=== PATIENT | male | born 1970 | race Caucasian/White ===

== ENCOUNTER 2024-03-04 07:35 | Outpatient (CLI) | payer OTHER, SELFPAY ==
--- OUTSIDE RECORDS SUMMARY | 2024-03-06 11:26 | XMS_ITS | Clinical Summary ---
Author Organization [facility] Address [place], [place] [address] Care Team Providers Care Jack Machine Operator Name Role Phone Pcp, No Primary Care Provider Unavailabl e Allergies No known active allergies Medications No known medications Encounters Date Type Department Care Team Description 12/09/2023 2:07 PM CDT - 12/09/2023 4:50 PM CDT Emergency [address] [address] Joon Dean MD Closed fracture of multiple ribs of left side, initial encounter (Primary Dx); Blunt trauma to chest, initial encounter; Hemothorax on left; Contusion of left lung, initial encounter Discharge Disposition: [facility] 12/09/2023 Travel from Last 3 Months Social History Tobacco Use Types Packs/Day Years Used Date Smoking Tobacco: Every Day Smokeless Tobacco: Never Sex and Gender Information Value Date Recorded Sex Assigned at Not on file Gender Identity Not on file Sexual Orientation Not on file Obstetrics History Last Filed Vital Signs Vital Sign Reading Time Taken Comments Blood Pressure 147/106 12/09/2023 4:03 PM CDT Pulse 101 12/09/2023 4:03 PM CDT Temperature 37 ??C (98.6 ??F) 12/09/2023 3:07 PM CDT Respiratory Rate 18 12/09/2023 3:00 PM CDT Oxygen Saturation 96% 12/09/2023 4:03 PM CDT Inhaled Oxygen Concentration - - Weight 98 kg (216 lb) 12/09/2023 3:11 PM CDT Height 167.6 cm (5' 6) 12/09/2023 3:11 PM CDT Body Mass Index 34.86 12/09/2023 3:11 PM CDT Plan of Treatment Health Maintenance Due Date Last Done Comments Tdap 11/29/1982 Depression screening for age 12+ 1983 HIV for age 15-65 11/29/1986 BMI (ht and wt on same day) for age 18+ 11/29/1989 Hepatitis C screening for ag e 18-79 11/29/1989 Tetanus booster 1991 Colonoscopy through age 75 11/29/2016 Lipids for age 45-75 11/29/2016 Zoster (shingles) series for age 50+ (1 of 2) 11/29/2021 COVID-19 vaccine series (2022- season) 2024 06/23/2021, 10/10/2020, 09/12/2020 Influenza for age 50-64 02/17/2024 Pneumococcal series for age 6-64 Aged Out No longer eligible b ased on patient's age to complete this topic Procedures Procedure Name Priority Date/Time Associated Diagnosis Comments CTA CHEST ABDOMEN PELVIS STAT 12/09/2023 2:[address] SPINE CERVICAL WO STAT 12/09/2023 2:[address] HEAD BRAIN WO STAT 12/09/2023 2:54 PM CDT EKG 12 LEAD STAT 12/09/2023 2:53 PM CDT XR CHEST 1 VIEW PORTABLE STAT 12/09/2023 2:51 PM CDT TYPE & SCREEN STAT 12/09/2023 2:19 PM CDT CBC WITH AUTO DIFFERENTIAL STAT 12/09/2023 2:19 PM CDT BASIC METABOLIC PANEL STAT 12/09/2023 2:19 PM CDT CBC WITH AUTO DIFFERENTIAL STAT 12/09/2023 2:19 PM CDT from Last 3 Months Results * CTA CHEST ABDOMEN PELVIS (12/09/2023 2:55 PM CDT) Anatomical Region Laterality Modality Abdomen, Pelvis, AORTA, LIVER, SPLEEN, CHEST Computed Tomography 12/09/2023 4:28 PM CDT Impressions 12/09/2023 4:28 PM CDT Acute mildly displaced left 5th, 6th, 7th, 8th rib fractures. These are fractured in 2 or more places which increases the risk of flail chest. Associated trace apical pneumothorax with left lower lobe pulmonary contusion/small pleural effusion. No acute intra-abdominal/pelvic abnormality. Please note that all CT scans at this facility use dose modulation, iterative reconstruction, and/or weight-based dosing when appropriate to reduce radiation dose to as low as reasonably achievable. Dictated by Levi Conde MD @ 12/09/2023 4:28:35 PM (Electronically Signed) Narrative 12/09/2023 4:28 PM CDT For Patients: ??As a result of the Cures Act, medical imaging exams and procedure reports are released immediately into your electronic medical record. ??You may view this report before your referring provider. ??If you have questions, please contact your health care provider. INDICATION: Trauma, left-sided rib pain TECHNIQUE: CT chest, abdomen, pelvis without contrast and CT chest, abdomen and pelvis acquired with 100 milliliters Omnipaque 350 IV contrast, dissection protocol. COMPARISON: None. FINDINGS: CHEST: Cardiovascular structures: The unenhanced images demonstrate no evidence of aortic intramural hematoma. ??The entire aorta is normal in caliber and there is no sign of aortic dissection. Heart size is normal. ?? Mediastinum and rg: No mass or adenopathy. ?? Lungs and pleura: Trace left apical pneumothorax. Left basilar consolidation with small pleural effusion. Chest wall and axilla: Associated left chest wall subcutaneous emphysema. No mass or adenopathy. ?? Bones: Acute mildly displaced left 5th, 6th, 7th, 8th rib fractures which are each fractured in multiple places. ABDOMEN AND PELVIS: Liver: Hepatic steatosis.. Gallbladder and bile ducts: Unremarkable. ?? Pancreas: Unremarkable. ?? Spleen: Unremarkable. ?? Adrenal glands: Unremarkable. ?? Kidneys: Unremarkable. ?? GI tract: Unremarkable. Vascular structures: Unremarkable. ?? Lymph nodes: Unremarkable. ?? Miscellaneous: Unremarkable. ??No free air or significant free fluid. ?? Pelvic Organs: Unremarkable. ?? Bones: Unremarkable for age. ?? Procedure Note Levi Conde MD - 12/09/2023 For Patients: As a result of the Century Cures Act, medical imagingexams and procedure reports are released immediately into your electronicmedical record. You may view this report before your referring provider.If you have questions, please contact your health care provider. INDICATION: Trauma, left-sided rib pain TECHNIQUE: CT chest, abdomen, pelvis without contrast and CT chest, abdomen andpelvis acquired with 100 milliliters Omnipaque 350 IV contrast, dissectionprotocol. COMPARISON: None. FINDINGS: CHEST: Cardiovascular structures: The unenhanced images demonstrate no evidenceof aortic intramural hematoma. The entire aorta is normal in caliber andthere is no sign of aortic dissection. Heart size is normal. Mediastinum and rg: No mass or adenopathy. Lungs and pleura: Trace left apical pneumothorax. Left basilarconsolidation with small pleural effusion. Chest wall and axilla: Associated left chest wall subcutaneous emphysema.No mass or adenopathy. Bones: Acute mildly displaced left 5th, 6th, 7th, 8th rib fractures whichare each fractured in multiple places. ABDOMEN AND PELVIS: Liver: Hepatic steatosis.. Gallbladder and bile ducts: Unremarkable. Pancreas: Unremarkable. Spleen: Unremarkable. Adrenal glands: Unremarkable. Kidneys: Unremarkable. GI tract: Unremarkable. Vascular structures: Unremarkable. Lymph nodes: Unremarkable. Miscellaneous: Unremarkable. No free air or significant free fluid. Pelvic Organs: Unremarkable. Bones: Unremarkable for age. IMPRESSION: Acute mildly displaced left 5th, 6th, 7th, 8th rib fractures. These arefractured in 2 or more places which increases the risk of flail chest. Associated trace apical pneumothorax with left lower lobe pulmonarycontusion/small pleural effusion. No acute intra-abdominal/pelvic abnormality. Please note that all CT scans at this facility use dose modulation,iterative reconstruction, and/or weight-based dosing when appropriate toreduce radiation dose to as low as reasonably achievable. Dictated by Levi Conde MD @ 12/09/2023 4:28:35 PM (Electronically Signed) Joon Dean MD CT * CT SPINE CERVICAL WO (12/09/2023 2:55 PM CDT) Anatomical Region Laterality Modality CERVICAL SPINE, NECK, Spine Comp uted Tomography 12/09/2023 3:19 PM CDT Impressions 12/09/2023 3:19 PM CDT 1. No acute fracture or traumatic subluxation. 2. Mild multilevel cervical spondylosis. Please note that all CT scans at this facility use dose modulation, iterative reconstruction, and/or weight-based dosing when appropriate to reduce radiation dose to as low as reasonably achievable. Dictated by Mahad Santana MD @ 12/09/2023 3:19:24 PM (Electronically Signed) Narrative 12/09/2023 3:19 PM CDT For Patients: ??As a result of the Cures Act, medical imaging exams and procedure reports are released immediately into your electronic medical record. ??You may view this report before your referring provider. ??If you have questions, please contact your health care provider. INDICATION: Trauma. Technique Noncontrast CT images of the cervical spine. COMPARISON: None. FINDINGS The cervical lordosis is maintained. Mild leftward cervical curvature. Vertebral body heights are preserved. No acute fracture, spondylolisthesis, or traumatic subluxation. Shallow multilevel posterior bulging and uncinate spurring. No spinal canal or neural foraminal stenosis. No concerning opacities in the lung apices. Procedure Note Mahad Santana MD - 12/09/2023 For Patients: As a result of the Cures Act, medical imagingexams and procedure reports are released immediately into your electronicmedical record. You may view this report before your referring provider.If you have questions, please contact your health care provider. INDICATION: Trauma. Technique Noncontrast CT images of the cervical spine. COMPARISON: None. FINDINGS The cervical lordosis is maintained. Mild leftward cervical curvature.Vertebral body heights are preserved. No acute fracture,spondylolisthesis, or traumatic subluxation. Shallow multilevel posterior bulging and uncinate spurring. No spinalcanal or neural foraminal stenosis. No concerning opacities in the lung apices. IMPRESSION: 1. No acute fracture or traumatic subluxation. 2. Mild multilevel cervical spondylosis. Please note that all CT scans at this facility use dose modulation,iterative reconstruction, and/or weight-based dosing when appropriate toreduce radiation dose to as low as reasonably achievable. Dictated by Mahad Santana MD @ 12/09/2023 3:19:24 PM (Electronically Signed) Joon Dean MD CT * CT HEAD BRAIN WO (12/09/2023 2:54 PM CDT) Anatomical Region Laterality Modality HEAD, BRAIN Computed Tomogra phy 12/09/2023 3:15 PM CDT Impressions 12/09/2023 3:15 PM CDT 1. No acute intracranial hemorrhage. 2. Heterogeneous attenuation abnormality demonstrating stippled calcifications in the inferior left frontal lobe. Prominent vasculature is visualized within the left sylvian fissure and coursing along the medial left temporal lobe. Findings are favored to represent an underlying arteriovenous malformation. CTA head would be recommended for further assessment. Please note that all CT scans at this facility use dose modulation, iterative reconstruction, and/or weight-based dosing when appropriate to reduce radiation dose to as low as reasonably achievable. Dictated by Mahad Santana MD @ 12/09/2023 3:15:35 PM (Electronically Signed) Narrative 12/09/2023 3:15 PM CDT For Patients: ??As a result of the Century Cures Act, medical imaging exams and procedure reports are released immediately into your electronic medical record. ??You may view this report before your referring provider. ??If you have questions, please contact your health care provider. INDICATION: Trauma. TECHNIQUE: Noncontrast CT images of the brain. COMPARISON: None. FINDINGS: The ventricles are not enlarged for patient age. No midline shift or hydrocephalus. The joya-white differentiation is maintained. No acute intracranial hemorrhage or pathologic extra-axial fluid collection. Heterogeneous attenuation abnormality demonstrating stippled calcifications in the inferior left frontal lobe. Prominent vasculature is visualized within the left sylvian fissure and coursing along the medial left temporal lobe. Findings are favored to represent an underlying arteriovenous malformation. The globes are symmetric. The calvarium and is intact. Minimal paranasal sinus mucosal thickening. Small osteoma left ethmoid air cells. Mastoid air cells are clear. Procedure Note Mahad Santana MD - 12/09/2023 For Patients: As a result of the 21st Century Cures Act, medical imagingexams and procedure reports are released immediately into your electronicmedical record. You may view this report before your referring provider.If you have questions, please contact your health care provider. INDICATION: Trauma. TECHNIQUE: Noncontrast CT images of the brain. COMPARISON: None. FINDINGS: The ventricles are not enlarged for patient age. No midline shift orhydrocephalus. The joya-white differentiation is maintained. No acute intracranial hemorrhage or pathologic extra-axial fluidcollection. Heterogeneous attenuation abnormality demonstrating stippledcalcifications in the inferior left frontal lobe. Prominent vasculature isvisualized within the left sylvian fissure and coursing along the medialleft temporal lobe. Findings are favored to represent an underlyingarteriovenous malformation. The globes are symmetric. The calvarium and is intact. Minimal paranasalsinus mucosal thickening. Small osteoma left ethmoid air cells. Mastoidair cells are clear. IMPRESSION: 1. No acute intracranial hemorrhage. 2. Heterogeneous attenuation abnormality demonstrating stippledcalcifications in the inferior left frontal lobe. Prominent vasculature isvisualized within the left sylvian fissure and coursing along the medialleft temporal lobe. Findings are favored to represent an underlyingarteriovenous malformation. CTA head would be recommended for furtherassessment. Please note that all CT scans at this facility use dose modulation,iterative reconstruction, and/or weight-based dosing when appropriate toreduce radiation dose to as low as reasonably achievable. Dictated by Mahad Santana MD @ 12/09/2023 3:15:35 PM (Electronically Signed) Joon Dean MD CT * EKG 12 LEAD (12/09/2023 2:53 PM CDT) Interpretation Normal sinus rhythm Normal ECG No previous ECGs available agree BEYOND NOW Ventricular Rate 92 BPM BEYOND NOW Atrial Rate 92 BPM BEYOND NOW P-R Interval 170 ms BEYOND NOW QRS Duration 96 ms BEYOND NOW QT 352 ms BEYOND NOW QTc 435 ms BEYOND NOW P [place] 46 degrees BEYOND NOW R [place] -11 degrees BEYOND NOW T [place] 50 degrees BEYOND NOW 12/09/2023 2:53 PM CDT 12/09/2023 4:59 PM CDT Joon Dean MD EKG ORD BEYOND NOW [place], [place] * XR CHEST 1 VIEW PORTABLE (12/09/2023 2:51 PM CDT) Anatomical Region Laterality Modality HEART, THORAX, CHEST Digital Rad iography 12/09/2023 3:51 PM CDT Impressions 12/09/2023 3:51 PM CDT Low lung volumes with ycaa-zvuixax-qtdw-right basilar consolidations. Multiple mildly displaced left lower lobe rib fractures. Please refer to same- day CT chest for further evaluation. Dictated by Levi Conde MD @ 12/09/2023 3:51:48 PM (Electronically Signed) Narrative 12/09/2023 3:51 PM CDT For Patients: ??As a result of the Cures Act, medical imaging exams and procedure reports are released immediately into your electronic medical record. ??You may view this report before your referring provider. ??If you have questions, please contact your health care provider. INDICATION: Trauma. TECHNIQUE: Chest 1 views. COMPARISON: None. FINDINGS: Cardiovascular and mediastinum: ??Heart size and vasculature are normal in caliber and appearance. ?? Lungs and pleural spaces: ??Low lung volumes with pfmr-igwofcy-ngdw-right basilar consolidations. No sign of infiltrate or mass. ??No sign of pleural effusion. ??No large pneumothorax. Bones and soft tissues: ??Multiple mildly displaced left lower rib fractures. Procedure Note Levi Conde MD - 12/09/2023 For Patients: As a result of the Cures Act, medical imagingexams and procedure reports are released immediately into your electronicmedical record. You may view this report before your referring provider.If you have questions, please contact your health care provider. INDICATION: Trauma. TECHNIQUE: Chest 1 views. COMPARISON: None. FINDINGS: Cardiovascular and mediastinum: Heart size and vasculature are normal incaliber and appearance. Lungs and pleural spaces: Low lung volumes with bfjc-yfhrzhz-cmmo-rightbasilar consolidations. No sign of infiltrate or mass. No sign of pleuraleffusion. No large pneumothorax. Bones and soft tissues: Multiple mildly displaced left lower ribfractures. IMPRESSION: Low lung volumes with wxar-ugxqtzt-pasv-right basilar consolidations. Multiple mildly displaced left lower lobe rib fractures. Please refer - CT chest for further evaluation. Dictated by Levi Conde MD @ 12/09/2023 3:51:48 PM (Electronically Signed) Joon Dean MD GENERAL IMAGING * (ABNORMAL) CBC WITH AUTO DIFFERENTIAL (12/09/2023 2:19 PM CDT) WHITE BLOOD COUNT 10.0 4.5 - 11.0 thou/cu mm 12/09/2023 2:29 PM [facility] RED BLOOD COUNT 5.93(H) 4.30 - 5.90 mil/cu mm 12/09/2023 2:29 PM [facility] HEMOGLOBIN 17.3 13.5 - 17.5 g/dL 12/09/2023 2:29 PM [facility] HEMATOCRIT 50.1 37.0 - 53.0 % 12/09/2023 2:29 PM [facility] MCV 85 80 - 100 fL 12/09/2023 2:29 PM [facility] MCH 29.2 26.0 - 34.0 pg 12/09/2023 2:29 PM [facility] MCHC 34.5 32.0 - 36.0 g/dL 12/09/2023 2:29 PM [facility] RDW 12.8 11.5 - 15.5 % 12/09/2023 2:29 PM [facility] PLATELET COUNT 222 140 - 440 thou/cu mm 12/09/2023 2:29 PM [facility] MPV 12.2(H) 6.5 - 11.0 fL 12/09/2023 2:29 PM [facility] % NEUT 58.1 % 12/09/2023 2:29 PM [facility] % LYMPH 30.9 % 12/09/2023 2:29 PM CDT [facility] % MONO 7.9 % 12/09/2023 2:29 PM CDT [facility] % EOS 2.4 % 12/09/2023 2:29 PM CDT [facility] % BASO 0.7 % 12/09/2023 2:29 PM CDT [facility] ABSOLUTE NEUTROPHILS 5.8 1.7 - 7.0 thou/cu mm 12/09/2023 2:29 PM CDT [facility] ABSOLUTE LYMPHOCYTES 3.1(H) 0.9 - 2.9 thou/cu mm 12/09/2023 2:29 PM CDT [facility] ABSOLUTE MONOCYTES 0.8 <0.9 thou/cu mm 12/09/2023 2:29 PM CDT [facility] ABSOLUTE EOSINOPHILS 0.2 <0.5 thou/cu mm 12/09/2023 2:29 PM CDT [facility] ABSOLUTE BASOPHILS 0.1 <0.3 thou/cu mm 12/09/2023 2:29 PM CDT [facility] Blood BLOOD SPECIMEN / Unknown IV Start / Unknown 12/09/2023 2:19 PM CDT 12/09/2023 2:26 PM CDT Joon Dean MD HEMATOLOGY [facility] [address] [place] [address] * TYPE AND SCREEN ONLY (12/09/2023 2:19 PM CDT) ABORH O Rh Positive 12/09/2023 3:09 PM CDT [facility] BLOOD BANK ANTIBODY SCREEN Negative Negative 12/09/2023 3:09 PM CDT [facility] BLOOD BANK SPECIMEN EXPIRATION DATE/TIME 12/12/23 23:59 12/09/2023 3:09 PM CDT [facility] BLOOD BANK Blood BLOOD SPECIMEN / Unknown IV Start / Unknown 12/09/2023 2:19 PM CDT 12/09/2023 2:26 PM CDT Joon Dean MD BLOOD BANK [facility] BLOOD BANK [address] [place] [address] * (ABNORMAL) BASIC METABOLIC PANEL (12/09/2023 2:19 PM CDT) SODIUM 136 136 - 145 mmol/L 12/09/2023 2:48 PM [facility] POTASSIUM 4.6 3.5 - 5.1 mmol/L 12/09/2023 2:48 PM [facility] CHLORIDE 100 98 - 107 mmol/L 12/09/2023 2:48 PM [facility] CO2,TOTAL 22 22 - 29 mmol/L 12/09/2023 2:48 PM [facility] ANION GAP 14 5 - 18 12/09/2023 2:48 PM [facility] GLUCOSE 372(H) 70 - 99 mg/dL 12/09/2023 2:48 PM [facility] CALCIUM 9.6 8.6 - 10.0 mg/dL 12/09/2023 2:48 PM [facility] BUN 10 6 - 20 mg/dL 12/09/2023 2:48 PM [facility] CREATININE 1.10 0.70 - 1.20 mg/dL 12/09/2023 2:48 PM [facility] BUN/CREAT RATIO 9(L) 10 - 20 2:48 PM [facility] eGFR 81(L) >90 mL/min/1.7 3m2 12/09/2023 2:48 PM [facility] Comment:As of 2021, eG FR is calculated by the CKD-EPI creatinine equation without race adjustment. ??eGFR can be influenced by muscle mass, exercise, and diet. ??The reported eGFR is an estimation only and is only applicable if the renal function is stable. Blood BLOOD SPECIMEN / Unknown IV Start / Unknown 12/09/2023 2:19 PM CDT 12/09/2023 2:28 PM CDT Joon Dean MD CHEMISTRY [facility] [address] [place] [address] from Last 3 Months Care Teams Jack Machine Operator Relationship Specialty Start Date End Date Pcp, No . PCP - General 06/07/15
--- OUTSIDE RECORDS SUMMARY | 2024-03-06 11:27 | XMS_ITS | Encounter Summary ---
Author Organization [facility] Address [address] [place] [phone] Phone Care Team Providers Care Environmental Science Technician Name Role Phone Pcp, No Primary Care Provider Unavailabl e Encounter Details Date Type Department Care Team (Late st Contact Info) Description 12/13/2023 Documentation Only Unspecified Department [place] Unknown, Provider Social History Tobacco Use Types Packs/Day Years Used Date Smoking Tobacco: Every Day Cigarettes Alcohol Use Standard Drinks/Week Comments No 0 (1 standard drink = 0.6 oz pur e alcohol) Sex and Gender Information Value Date Recorded Sex Assigned at Male 01/09/2024 1:40 PM CDT Gender Identity Male 01/09/2024 1:40 PM CDT Sexual Orientation Straight 01/09/2024 1: 40 PM CDT documented as of this encounter Plan of Treatment Upcoming Encounters Date Type Department Care Team (Late Contact Info) Description 03/18/2024 9:10 AM CDT [facility] [address] [place] [phone],[place] [phone] Scheduled Discharge Disposition: Discharged to home or self care 03/18/2024 10:20 AM CDT [facility] [address] [place] [phone] Collette Serrano RN, [address] [id number] Scheduled Discharge Disposition: Discharged to home or self care documented as of this encounter Visit Diagnoses Not on filedocumented in this encounter Care Teams Environmental Science Technician Relationship Specialty Start Date End Date Pcp, No [facility] [place] [address] PCP - General 03/31/08 documented as of this encounter
--- OUTSIDE RECORDS SUMMARY | 2024-03-06 11:27 | XMS_ITS | Encounter Summary ---
Author Organization [facility] Address [address] [place] [phone] Phone Care Team Providers Care Prison Librarian Name Role Phone Pcp, No Primary Care Provider Unavailabl e Encounter Details Date Type Department Care Team (Latest Contact Info) Description 01/24/2024 Travel Social History Tobacco Use Types Packs/Day Years [...] Encounters Date Type Department Care Team (Late st Contact Info) Description 03/18/2024 9:10 AM CDT [facility] [address] [place] [phone],[place],[address] [phone] Scheduled Discharge Disposition: Discharged to home or self care 03/18/2024 10:20 AM CDT [facility] [address] [place] [phone] Collette Serrano RN, [address] [address] Scheduled Discharge Disposition: Discharged to home or self care documented as of this encounter Visit Diagnoses Not on filedocumented in this encounter Care Teams Prison Librarian Relationship Specialty Start Date End Date Pcp, [place] [address] PCP - General 03/31/08 documented as of this encounter
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
--- OUTSIDE RECORDS SUMMARY | 2024-03-06 11:27 | XMS_ITS | Referral Summary ---
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 Last update 11/20/08.[employer] Encounters Date Type Department Care Team Description 01/24/2024 Travel 01/24/2024 9:10 AM CDT [facility] [address] [place] [phone] Amy Santoyo MD Jesness, Linda R, TANVI, [facility] Type 2 diabetes mellitus with diabetic neuropathy, with long-term current use of insulin ([facility]) (Primary Dx) Discharge Disposition: Discharged to home or self care 01/09/2024 10:13 AM CDT - 01/09/2024 11:59 PM CDT [facility] [address] [place] [id number] Alex Lacy MD Discharge Disposition: Discharged to home or self care 01/09/2024 Travel 01/09/2024 10:00 AM CDT [facility] [address] [place] [phone] Alex Lacy MD Benign neoplasm of aryepiglottic fold (Primary Dx); Vallecular cyst Discharge Disposition: Discharged to home or self care 12/13/2023 Documentation Only Unspecified Department [place] Unknown, Provider 12/09/2023 5:04 PM CDT - 12/12/2023 4:37 PM CDT Hospital Encounter [facility] Surgery/Trauma/Neuro [id number] [place] [address] Blaine Vasquez MD Closed fracture of multiple ribs of left side, initial encounter Discharge Disposition: Discharged to home or self care 12/11/2023 Orders Only Unspecified Department [place] Unknown, Provider 12/11/2023 Orders Only Unspecified Department [place] Unknown, Provider 12/10/2023 Orders Only Unspecified Department [place] Unknown, Provider 12/10/2023 Orders Only Unspecified Department [place] Unknown, Provider 12/10/2023 Orders Only Unspecified Department [place] Unknown, Provider 12/10/2023 Orders Only Unspecified Department [place] Unknown, Provider 12/09/2023 Orders Only Unspecified Department [place] Unknown, Provider from Last 3 Months Allergies No known active allergies Medications * Be aware that medications may not be up to date as of this document. Always verify current medications with patient. Medication Sig Dispensed Refills Start Date End Date Status contour NEXT EZ NotApplicabl meter Use as directed. 1 kit 12/11/2023 Active glucose blood (CONTOUR NEXT TEST) in vitro test strips Test 3 times daily. 100 Strip 11 12/11/2023 Active acetaminophen (TYLENOL) 325 mg oral tablet Take 3 tablets (975 mg) by mouth every 6 hours as needed for Moderate Pain. 60 tablet 12/12/2023 Active Additional Information Patient not taking.Reported on 01/09/2024 bacitracin 500 unit/g externally external ointment Apply to elbow abrasion daily 28 g 12/13/2023 Active cyclobenzaprine (FLEXERIL) 10 mg oral Take 1 tablet (10 mg) by mouth 3 times daily as needed for Muscle Spasm(s). 20 tablet 12/12/2023 Active insulin pen needle 32g X 6 mm NotApplicabl misc Use 1 times per day. 100 each 12/12/2023 Active metFORMIN (GLUCOPHAGE) 500 mg oral TABS Take 2 tablets (1000 mg) by mouth twice daily with meals. 120 tablet 1 12/12/2023 Active Sure Comfort lancets Test 2 times per day 100 each 11 01/24/2024 Active Active Problems Problem Noted Date Diagnosed Date Benign neoplasm of aryepiglottic fold 12/12/2023 Closed fracture of multiple ribs of left side, initial encounter 12/09/2023 Social History Tobacco Use Types Packs/Day Years Used Date Smoking Tobacco: Every Day Cigarettes Tobacco Cessation:Ready to Q uit: Not Asked; Counseling Given: Not Answered Alcohol Use Standard Drinks/Week Comments No 0 (1 standard drink = 0.6 oz pur e alcohol) Sex and Gender Information Value Date Recorded Sex Assigned at Male 01/09/2024 1:40 PM CDT Gender Identity Male 01/09/2024 1:40 PM CDT Sexual Orientation Straight 01/09/2024 1: 40 PM CDT Last Filed Vital Signs Vital Sign Reading Time Taken Comments Blood Pressure 133/89 12/12/2023 3:13 PM CDT Pulse 105 12/12/2023 3:13 PM CDT Temperature 37.5 ??C (99.5 ??F) 12/12/2023 3:13 PM CD T Respiratory Rate 18 12/12/2023 3:13 PM CDT Oxygen Saturation 90% 12/12/2023 3:13 PM CDT Inhaled Oxygen Concentration - - Weight 99.1 kg (218 lb 7.6 oz) 12/09/2023 5:12 P M CDT Height - - Body Mass Index - - Plan of Treatment Upcoming Encounters Date Type Department Care Team (Late st Contact Info) Description 03/18/2024 9:10 AM CDT [facility] [address] [place] [phone],LD[address] [phone] Scheduled Discharge Disposition: Discharged to home or self care 03/18/2024 10:20 AM CDT [facility] [address] [place] [phone] Collette Serrano RN, [address] [phone] Scheduled Discharge Disposition: Discharged to home or self care Procedures Procedure Name Priority Date/Time Associated Diagnosis Comments ENT LARYNGOSCOPY FLEX FIBER DIAG DIGITAL Routine 01/09/2024 2:20 PM CDT Benign neoplasm of aryepiglottic fold ANTI XA ASSAY LMW HEPARIN Timed 12/12/2023 1:16 PM CDT POC GLUCOSE Routine 12/12/2023 10:56 AM CDT POC GLUCOSE Routine 12/12/2023 6:45 AM CDT PC LAB CBC/PLT Routine 12/12/2023 6:09 AM CDT PANEL BASIC METABOLIC (BMP) Routine 12/12/2023 6:09 AM CDT POC GLUCOSE Routine 12/11/2023 8:57 PM CDT POC GLUCOSE Routine 12/11/2023 6:16 PM CDT POC GLUCOSE Routine 12/11/2023 4:07 PM CDT POC GLUCOSE Routine 12/11/2023 11:26 AM CDT TELEMETRY STRIPS 12/11/2023 9:18 AM CDT POC GLUCOSE Routine 12/11/2023 6:09 AM CDT PANEL BASIC METABOLIC (BMP) Routine 12/11/2023 5:12 AM CDT TC LAB BLOOD DRAW BY VENIPUNCTURE Routine 12/11/2023 5:12 AM CDT TELEMETRY STRIPS 12/11/2023 4:12 AM CDT POC GLUCOSE Routine 12/10/2023 8:53 PM CDT TELEMETRY STRIPS 12/10/2023 6:14 PM CDT POC GLUCOSE Routine 12/10/2023 3:47 PM CDT POC GLUCOSE Routine 12/10/2023 12:08 PM CDT TELEMETRY STRIPS 12/10/2023 10:2 0 AM CDT TELEMETRY STRIPS 12/10/2023 8:45 AM CDT XR CHEST 1 VIEW AP OR PA* Routine 12/10/2023 8:29 AM CDT POC GLUCOSE Routine 12/10/2023 6:07 AM CDT PANEL BASIC METABOLIC (BMP) Routine 12/10/2023 5:11 AM CDT TC LAB BLOOD DRAW BY VENIPUNCTURE Routine 12/10/2023 5:11 AM CDT PC LAB GLYCOSYLATED HGB Routine 12/10/2023 5:06 AM CDT TELEMETRY STRIPS 12/10/2023 4:[address] SPINE THORACIC NO IV CON Routine 12/09/2023 10:[address] SPINE LUMBAR NO IV CON Routine 12/09/2023 10:54 PM CDT TELEMETRY STRIPS 12/09/2023 7:27 PM CDT PC ERECTOR SPINAE NERVE BLOCK Routine 12/09/2023 6:09 PM CDT ED US GUIDED NERVE BLOCK STAT 12/09/2023 5:[address] OUTSIDE READ SPINE CERVICAL/NECK STAT 12/09/2023 5:[address] OUTSIDE READ HEAD/FACIAL BONES STAT 12/09/2023 5:[address] OUTSIDE READ CHEST/ABD/PELV STAT 12/09/2023 5:33 PM CDT TC LAB BLOOD DRAW BY VENIPUNCTURE Routine 12/09/2023 5:08 PM CDT PRECAUTIONARY TUBE STAT 12/09/2023 5: 08 PM CDT PC TROPONIN QUANTITATIVE STAT 12/09/2023 5:07 PM CDT ETHANOL (ETOH) LEVEL, BLOOD STAT 12/09/2023 5:07 PM CDT PC LAB PTT STAT 12/09/2023 5:07 PM CDT PC LAB ED INR STAT 12/09/2023 5:07 PM CDT PC LACTATE (LACTIC ACID) STAT 12/09/2023 5:07 PM CDT FIBRINOGEN STAT 12/09/2023 5:07 PM CDT PANEL HEPATIC FUNCTION STAT 12/09/2023 5:07 PM CDT TC LAB ER STAT TOTAL HGB STAT 12/09/2023 5:07 PM CDT PC CREATININE;BLOOD STAT 12/09/2023 5 :07 PM CDT PC LAB CBC W/DIFF & PLT STAT 12/09/2023 5:07 PM CDT PC GASES,BLOOD,ANY COMB OF PH,PCD2,PO2,CO2,HCO2 STAT 12/09/2023 5:07 PM CDT ED US CRITICAL CARE STAT 12/09/2023 5 :05 PM CDT from Last 3 Months Results * ENT LARYNGOSCOPY FLEX FIBER DIAG DIGITAL (01/09/2024 2:20 PM CDT) Narrative User, [id number] - 01/09/2024 2:20 PM CDT See ENT Clinic note from same date for procedure result. Alex Lacy MD RAD ENT ENDOSCOPY * ANTI XA ASSAY LMW HEPARIN (12/12/2023 1:16 PM CDT) [facility] Anti XA LMW 0.08 IU/mL [facility] Comment: Anti Xa Assay LMW Heparin Therapeutic Ranges: 0.4-1.1 IU/mL for twice daily 1.0-2.0 IU/mL for once daily Blood 12/12/2023 1:16 PM CDT 12/12/2023 1:36 PM CDT Blaine Vasquez MD LABORATORY [facility] [place] [address] * (ABNORMAL) POC GLUCOSE (12/12/2023 10:56 AM CDT) Only the most recent of11 resultswithin the time period is included. [facility] POC Glucose 254(H) 70 - 100 mg/dL [facility] Blood 12/12/2023 10:5 6 AM CDT Blaine Vasquez MD LABORATORY Performing Organization Address [facility]/ZIP Co de Phone Number [facility] [address] [place] [address] * (ABNORMAL) PANEL BASIC METABOLIC (BMP) (12/12/2023 6:09 AM CDT) Only the most recent of3 resultswithin the time period is included. Pathologist [facility] AnGap 8 8 - 16 mmol/L [facility] Calcium 9.2 8.6 - 10.0 mg/dL [facility] Chloride 99 92 - 108 mmol/L [facility] CO2 31(H) 22 - 30 mmol/L [facility] Glucose 199(H) 70 - 100 mg/dL [facility] Creatinine 0.89 0.70 - 1.25 mg/dL [facility] Sodium 138 135 - 148 mmol/L [facility] Potassium 4.8 3.5 - 5.3 mmol/L [facility] eGFR (2020 CKD-EPI) 103 >=60 ml/min/1.7 3m2 [facility] Comment: The estimated glomerular filtration rate (eGFR) was calculated using the CKD-EPI 2020 creatinine equation, which does not include race as a factor. This equation is validated in individuals 18 years of age and older, and eGFR is normalized to a body surface area of 1.73m^2. BUN 13 6 - 20 mg/dL [facility] Blood 12/12/2023 6:09 AM CDT 12/12/2023 6:21 AM CDT Blaine Vasquez MD LABORATORY Performing Organization Address [facility] Co de Phone Number [facility] [address] [phone] * CBC WITH PLATELET (12/12/2023 6:09 AM CDT) Only the most recent of3 resultswithin the time period is included. WBC 8.94 4.00 - 10.00 k/cmm [facility] RBC 5.09 4.60 - 6.00 m/cmm [facility] Hgb 15.1 13.1 - 17.5 g/dL [facility] Hematocrit 44.0 40.0 - 51.0 % [facility] MCV 86.4 80.0 - 100.0 fL [facility] MCH 29.7 25.0 - 32.0 pg [facility] MCHC 34.3 31.0 - 36.0 g/dL [facility] RDW 12.3 11.5 - 14.5 % [facility] Plt 169 150 - 400 k/cmm [facility] MPV 11.4 6.5 - 12.5 fL [facility] Blood 12/12/2023 6:09 AM CDT 12/12/2023 6:22 AM CDT Blaine Vasquez MD LABORATORY [facility] [address] [id number] * TELEMETRY STRIPS (12/11/2023 9:18 AM CDT) Only the most recent of7 resultswithin the time period is included. Narrative 12/11/2023 9:18 AM CDT Ordered by an unspecified provider. Provider Unknown RAD ECHO * XR CHEST 1 VIEW AP OR PA* (12/10/2023 8:29 AM CDT) Anatomical Region Laterality Modality Chest Computed Radiogr aphy 12/10/2023 8:32 AM CDT Impressions 12/10/2023 8:37 AM CDT Impression: Multiple left-sided rib fractures with associated left lung opacity. No pneumothorax. Reading Radiologist: Adithya Cruz Narrative 12/10/2023 8:37 AM CDT Technique: XR CHEST 1 VIEW AP OR PA* Indication: multiple rib fractures, eval for ptx ?? Comparison: CT from [birth year]/08/1933 Findings: Low lung volumes. Multiple left-sided rib fractures, with associated left basilar opacity. No definite pneumothorax is seen. Mildly distended stomach. Procedure Note Adithya Cruz MBBS - 12/10/2023 Technique: XR CHEST 1 VIEW AP OR PA* Indication: multiple rib fractures, eval for ptx Comparison: CT from [birth year]/08/1933 Findings: Low lung volumes. Multiple left-sided rib fractures, withassociated left basilar opacity. No definite pneumothorax is seen. Mildly distended stomach. IMPRESSION Impression: Multiple left-sided rib fractures with associated left lung opacity. Nopneumothorax. Reading Radiologist: Adithya Cruz Blaine Vasquez MD RAD XRAY * (ABNORMAL) GLYCOSYLATED HGB - A1C (12/10/2023 5:06 AM CDT) Hemoglobin A1C 11.1(H) 4.0 - 5.6 % [facility] Comment: Increased risk for diabetes (prediabetes): 5.7-6.4% Diabetes >=6.5% In the absence of unequivocal hyperglycemia, diagnosis requires two abnormal test results (i.e. HbA1c and glucose) or two abnormal results from specimens collected at two different timepoints. The presence of some hemoglobin variants or red cell disorders may interfere with the measurement of hemoglobin A1c (HbA1c). Estimated Average Glucose 272(H) 68 - 114 [facility] Comment: The estimated Average Glucose (eAG) was calculated using an equation derived from a study of 507 adults with type 1, type 2, or no diabetes. Minority populations were underrepresented and children were not included. The eAG is not equivalent to a fasting glucose concentration. Blood 12/10/2023 5:06 AM CDT 12/10/2023 7:31 AM CDT Blaine Vasquez MD LABORATORY [facility] [address] [address] * CT SPINE THORACIC NO IV CON (12/09/2023 10:54 PM CDT) Anatomical Region Laterality Modality Thoracic Spine Computed Tomogra phy 12/10/2023 12:1 2 AM CDT Impressions 12/10/2023 8:16 AM CDT Impression: 1. No evidence for fracture/dislocation of the thoracic spine. 2. No evidence for fracture/dislocation of the lumbar spine. I have personally reviewed the image(s) and initial interpretation, and I agree with the findings as documented by the resident/fellow. Reading Radiologist: Michael Flood Resident: Brandi Diamond 12/10/2023 8:16 AM CDT Thoracic and Lumbar Spine CT Reconstructions Indication: ??trauma eval ??. Comparison: ??Same day CT chest abdomen and pelvis Technique: Images of the thoracic and lumbar spine with axial, sagittal and coronal reconstructions were obtained from a CT examination of ??the chest and abdomen. Images were reviewed in a bone window. This is not additional radiation; these images are reconstructed from the chest/abdomen/pelvis CT Findings: Please refer to the chest/abdomen CT report for the findings on those examinations. Thoracic spine: There is no fracture or dislocation of the thoracic vertebrae. Alignment of the thoracic vertebra appears within normal limits. The spinal canal and the neural foramina bilaterally are grossly patent at all visualized levels. ??The visualized prevertebral and paravertebral soft tissues are unremarkable. Multilevel endplate ossific spurring. Lumbar spine: There is no fracture or dislocation of the lumbar vertebrae. Alignment of the lumbar vertebrae appears within normal limits. There is no significant disc height narrowing at any level. ??The visualized prevertebral and paravertebral soft tissues are unremarkable. Multilevel bilateral facet hypertrophy. No high-grade neural foraminal or spinal canal stenosis at any level. Left-sided rib fractures; please see same day CT of the chest abdomen and pelvis for further details. Procedure Note Michael Flood MD - 12/10/[address] Reconstructions Indication: trauma eval . Comparison: Same day CT chest abdomen and pelvis Technique: Images of the thoracic and lumbar spine with axial, sagittaland coronal reconstructions were obtained from a CT examination of thechest and abdomen. Images were reviewed in a bone window. This is notadditional radiation; these images are reconstructed from thechest/abdomen/pelvis CT Findings: Please refer to the chest/abdomen CT report for the findings on thoseexaminations. Thoracic spine: There is no fracture or dislocation of the thoracicvertebrae. Alignment of the thoracic vertebra appears within normallimits. The spinal canal and the neural foramina bilaterally are grosslypatent at all visualized levels. The visualized prevertebral andparavertebral soft tissues are unremarkable. Multilevel endplate ossificspurring. Lumbar spine: There is no fracture or dislocation of the lumbar vertebrae.Alignment of the lumbar vertebrae appears within normal limits. There isno significant disc height narrowing at any level. The visualizedprevertebral and paravertebral soft tissues are unremarkable. Multilevelbilateral facet hypertrophy. No high-grade neural foraminal or spinalcanal stenosis at any level. Left-sided rib fractures; please see same day CT of the chest abdomen andpelvis for further details. IMPRESSION Impression: 1. No evidence for fracture/dislocation of the thoracic spine. 2. No evidence for fracture/dislocation of the lumbar spine. I have personally reviewed the image(s) and initial interpretation, and Iagree with the findings as documented by the resident/fellow. Reading Radiologist: Michael Flood Resident: Brandi Diamond Blaine Vasquez MD RAD CT NEURO * CT SPINE LUMBAR NO IV CON (12/09/2023 10:54 PM CDT) Anatomical Region Laterality Modality Lumbar Spine Computed Tomogra phy 12/10/2023 12:1 2 AM CDT Impressions 12/10/2023 8:16 AM CDT Impression: 1. No evidence for fracture/dislocation of the thoracic spine. 2. No evidence for fracture/dislocation of the lumbar spine. I have personally reviewed the image(s) and initial interpretation, and I agree with the findings as documented by the resident/fellow. Reading Radiologist: Michael Flood Resident: Brandi Diamond 12/10/2023 8:16 AM CDT Thoracic and Lumbar Spine CT Reconstructions Indication: ??trauma eval ??. Comparison: ??Same day CT chest abdomen and pelvis Technique: Images of the thoracic and lumbar spine with axial, sagittal and coronal reconstructions were obtained from a CT examination of ??the chest and abdomen. Images were reviewed in a bone window. This is not additional radiation; these images are reconstructed from the chest/abdomen/pelvis CT Findings: Please refer to the chest/abdomen CT report for the findings on those examinations. Thoracic spine: There is no fracture or dislocation of the thoracic vertebrae. Alignment of the thoracic vertebra appears within normal limits. The spinal canal and the neural foramina bilaterally are grossly patent at all visualized levels. ??The visualized prevertebral and paravertebral soft tissues are unremarkable. Multilevel endplate ossific spurring. Lumbar spine: There is no fracture or dislocation of the lumbar vertebrae. Alignment of the lumbar vertebrae appears within normal limits. There is no significant disc height narrowing at any level. ??The visualized prevertebral and paravertebral soft tissues are unremarkable. Multilevel bilateral facet hypertrophy. No high-grade neural foraminal or spinal canal stenosis at any level. Left-sided rib fractures; please see same day CT of the chest abdomen and pelvis for further details. Procedure Note Michael Flood MD - 12/10/[address] Reconstructions Indication: trauma eval . Comparison: Same day CT chest abdomen and pelvis Technique: Images of the thoracic and lumbar spine with axial, sagittaland coronal reconstructions were obtained from a CT examination of thechest and abdomen. Images were reviewed in a bone window. This is notadditional radiation; these images are reconstructed from thechest/abdomen/pelvis CT Findings: Please refer to the chest/abdomen CT report for the findings on thoseexaminations. Thoracic spine: There is no fracture or dislocation of the thoracicvertebrae. Alignment of the thoracic vertebra appears within normallimits. The spinal canal and the neural foramina bilaterally are grosslypatent at all visualized levels. The visualized prevertebral andparavertebral soft tissues are unremarkable. Multilevel endplate ossificspurring. Lumbar spine: There is no fracture or dislocation of the lumbar vertebrae.Alignment of the lumbar vertebrae appears within normal limits. There isno significant disc height narrowing at any level. The visualizedprevertebral and paravertebral soft tissues are unremarkable. Multilevelbilateral facet hypertrophy. No high-grade neural foraminal or spinalcanal stenosis at any level. Left-sided rib fractures; please see same day CT of the chest abdomen andpelvis for further details. IMPRESSION Impression: 1. No evidence for fracture/dislocation of the thoracic spine. 2. No evidence for fracture/dislocation of the lumbar spine. I have personally reviewed the image(s) and initial interpretation, and Iagree with the findings as documented by the resident/fellow. Reading Radiologist: Michael Flood Resident: Brandi Diamond Blaine Vasquez MD RAD CT NEURO * Nerve Block (12/09/2023 6:09 PM CDT) Narrative José Ansari MD - 12/09/2023 6:09 PM CDT Jesse An MD ? 12/09/2023 ??6:15 PM Nerve Block Performed by: José Ansari MD Authorized by: José Ansari MD ?? Consent: ??Consent obtained: ??Emergent situation [place] protocol: ??Patient identity confirmed: ??Verbally with patient Indications: ??Indications: ??Pain relief Location: ??Body area: ??Trunk ??Trunk area nerve blocked: Erector Spinale Plane block, left. ??Laterality: ??Left Pre-procedure details: ??Skin preparation: ??Chlorhexidine ??Preparation: Patient was prepped and draped in usual sterile fashion ?? Skin anesthesia: ??Skin anesthesia method: ??Local infiltration ??Local anesthetic: ??Lidocaine 1% WITH epi (8 mL) Procedure details: ??Block needle gauge: ??20 G ??Anesthesia technique comment: ??Erector Spinae Plane Block ??Block anesthetic: ropivicaine 0.5% (30 mL) ??Steroid injected: ??None ??Additive injected: normal saline 20 mL. ??Injection procedure: ??Anatomic landmarks identified, incremental injection, negative aspiration for blood, anatomic landmarks palpated and introduced needle ??Paresthesia: ??None Post-procedure details: ??Dressing: ??None ??Outcome: ??Pain improved ??Procedure completion: ??Tolerated José Ansari MD PROCEDURES * ED US GUIDED NERVE BLOCK (12/09/2023 5:34 PM CDT) Anatomical Region Laterality Modality Ultrasound Narrative 12/09/2023 7:24 PM CDT Procedure Name - ED Ultrasound Nerve Block Indications: Pain Window: Longitudinal Findings: Anesthetic visualized anterior to transverse processes in T spine Impression: Successful ultrasound-guided procedure. Jesse An MD, 12/09/2023 6:22 PM ED Attending Ultrasound Note: I have personally reviewed the image(s) and initial interpretation, and I agree with the findings as documented. José Ansari MD, 12/09/2023 7:24 PM José Ansari MD RAD ED ULT * CT OUTSIDE READ SPINE CERVICAL/NECK (12/09/2023 5:33 PM CDT) Anatomical Region Laterality Modality Cervical Spine Computed Tomogra phy 12/09/2023 5:49 PM CDT Impressions 12/09/2023 6:29 PM CDT Impression: ?? 1. No fracture or subluxation of the cervical vertebrae. 2. No significant spinal canal or neural foraminal stenosis. 3. Abnormal soft tissue lesion involving the right aryepiglottic folds. Recommend direct visualization. I have personally reviewed the image(s) and initial interpretation, and I agree with the findings as documented by the resident/fellow. Reading Radiologist: June Silvestre Resident: Domi Pena Narrative 12/09/2023 6:29 PM CDT Indication: ??Patient transferred from [facility] due to Trauma. ??No initial report accompanied the patient and/or DrYuniel ??JOSÉ ANSARI requested an interpretation by me. Technique: ??CT scan of the cervical spine done on 12/09/2023 without IV contrast. ??3 mm axial, sagittal and coronal reconstructions reviewed in soft tissue and bone windows, per the local institution's scanning protocols, which may differ from the [facility] trauma protocols. Findings: ?? The lateral masses of C1 appear normally aligned on C2. The normal cervical lordotic curvature is preserved. Alignment of the cervical spine appears intact. There is no evidence of fracture or significant prevertebral soft tissue swelling. There is no significant disc space narrowing at any level. No abnormality of the visualized paraspinous tissues is noted. Abnormal soft tissue density involving the right aryepiglottic folds measuring approximately 1.9 x 1.2 cm (). Please refer to separately dictated CT chest abdomen pelvis from same day for further discussion of intrathoracic findings. Procedure Note June Silvestre MD - 12/09/2023 Indication: [facility] to[facility]. No initial report accompanied the patient and/or Dr. REESE requested an interpretation by me. Technique: CT scan of the cervical spine done on 12/09/2023 without IVcontrast. 3 mm axial, sagittal and coronal reconstructions reviewed insoft tissue and bone windows, per the local institution's scanningprotocols, which may differ from the [facility] trauma protocols. Findings: The lateral masses of C1 appear normally aligned on C2. The normalcervical lordotic curvature is preserved. Alignment of the cervical spineappears intact. There is no evidence of fracture or significantprevertebral soft tissue swelling. There is no significant disc spacenarrowing at any level. No abnormality of the visualized paraspinous tissues is noted. Abnormalsoft tissue density involving the right aryepiglottic folds measuringapproximately 1.9 x 1.2 cm (). Please refer to separately dictated CT chest abdomen pelvis from same dayfor further discussion of intrathoracic findings. IMPRESSION Impression: 1. No fracture or subluxation of the cervical vertebrae. 2. No significant spinal canal or neural foraminal stenosis. 3. Abnormal soft tissue lesion involving the right aryepiglottic folds.Recommend direct visualization. I have personally reviewed the image(s) and initial interpretation, and Iagree with the findings as documented by the resident/fellow. Reading Radiologist: June Silvestre Resident: Domi Pena José Ansari MD RAD CT NEURO * CT OUTSIDE READ HEAD/FACIAL BONES (12/09/2023 5:33 PM CDT) Anatomical Region Laterality Modality Skull Computed Tomogra phy 12/09/2023 5:40 PM CDT Impressions 12/09/2023 7:48 PM CDT Impression: ?? 1. No definite acute intracranial pathology. There are multiple hyperdensities in the paramedian left inferior frontal lobe, which may represent a cavernoma. Recommend comparison with outside imaging if available. 2. Prominent left parasellar vasculature, basal vein of Humphrey and vein of Gallen, which could represent AVM. I have personally reviewed the image(s) and initial interpretation, and I agree with the findings as documented by the resident/fellow. Reading Radiologist: June Silvestre Resident: Domi Pena Narrative 12/09/2023 7:48 PM CDT Indication: ??Patient transferred from [facility] due to Trauma. ??No initial report accompanied the patient and/or Dr. ??JOSÉ ANSARI requested an interpretation by me. Technique: ??CT scan of the head done on 12/09/2023 without IV contrast. ??3 mm axial and coronal reconstructions reviewed in soft tissue and bone windows, per the local institution's scanning protocols, which may differ from the [facility] trauma protocols. Findings: ?? Coker-white differentiation is intact throughout. No definite acute intracranial hemorrhage or extra-axial collection. There is no midline shift or mass effect. Focal parenchymal hyperdensities in the paramedian left inferior frontal lobe without surrounding edema or calvarial fracture. Asymmetrically enlarged/prominent left paracentral vasculature, basal vein of Humphrey and vein of Gallen. No acute calvarial abnormality. Paranasal sinuses and mastoid air cells are clear. Near edentulous. Procedure Note June Silvestre MD - 12/09/2023 Indication: Patient transferred from [facility] dueto Trauma. No initial report accompanied the patient and/or Dr. REESE requested an interpretation by me. Technique: CT scan of the head done on 12/09/2023 without IV contrast. 3mm axial and coronal reconstructions reviewed in soft tissue and bonewindows, per the local institution's scanning protocols, which may differfrom the [facility] trauma protocols. Findings: Coker-white differentiation is intact throughout. No definite acuteintracranial hemorrhage or extra-axial collection. There is no midlineshift or mass effect. Focal parenchymal hyperdensities in the paramedianleft inferior frontal lobe without surrounding edema or calvarialfracture. Asymmetrically enlarged/prominent left paracentral vasculature,basal vein of Humphrey and vein of Gallen. No acute calvarial abnormality. Paranasal sinuses and mastoid air cellsare clear. Near edentulous. IMPRESSION Impression: 1. No definite acute intracranial pathology. There are multiplehyperdensities in the paramedian left inferior frontal lobe, which mayrepresent a cavernoma. Recommend comparison with outside imaging ifavailable. 2. Prominent left parasellar vasculature, basal vein of Humphrey and veinof Gallen, which could represent AVM. I have personally reviewed the image(s) and initial interpretation, and Iagree with the findings as documented by the resident/fellow. Reading Radiologist: June Silvestre Resident: Domi Pena José Ansari MD RAD CT NEURO * CT OUTSIDE READ CHEST/ABD/PELV (12/09/2023 5:33 PM CDT) Anatomical Region Laterality Modality Chest, Pelvis, Abdomen Computed Tomography 12/09/2023 5:53 PM CDT Impressions 12/09/2023 6:30 PM CDT Impression: ?? 1. Left posterior and lateral sixth through eighth rib fractures. 2. Small simple fluid attenuating left pleural effusion with a few small foci of extrapleural air within the collection. 3. Confluent left greater than right basilar opacities, favored to represent atelectasis. Focal opacity in the lingula could also represent a small pulmonary contusion. I have personally reviewed the image(s) and initial interpretation, and I agree with the findings as documented by the resident/fellow. Reading Radiologist: Olaf Greene Reading Resident: Domi Pena Narrative 12/09/2023 6:30 PM CDT Indication: ??Patient transferred from [facility] due to Trauma. ??No initial report accompanied the patient and/or Dr. ??JOSÉ ANSARI requested an interpretation by me. Technique: ??CT scan of the chest/abdomen/pelvis done on 12/09/2023 with IV contrast. ??3 mm axial, sagittal and coronal reconstructions reviewed in soft tissue and bone windows, per the local institution's scanning protocols, which may differ from the [facility] trauma protocols. Findings: ?? Chest: ?? Lungs: ?? Airway: Patent Lungs: No definite pneumothorax. A few scattered foci of gas within a small volume left pleural fluid with simple fluid attenuation. Bilateral dependent subpleural opacities, likely atelectasis. Focal opacities in the lingula, likely atelectasis versus small contusion. Chest wall: Multiple left rib fractures (described below) with small amount of subcutaneous gas tracking along the posterolateral chest wall. Mediastinum: ?? Thyroid:Normal Vessels: Normal caliber of the aorta and main pulmonary artery. Heart and pericardium: Cardiac size is normal. No pericardial effusion. No significant coronary artery calcium. Tiny focus of air in the anterior mediastinal fat pad, anterior to the heart. Lymph nodes: No enlarged thoracic lymph nodes Esophagus: Unremarkable Abdomen/Pelvis: ?? Liver: Diffuse hepatic hypoattenuation, which may represent hepatic steatosis. No acute hepatic injury.. Gallbladder and biliary tree: No calcified gallstones. No intra- or extrahepatic biliary ductal dilation. Pancreas: Within normal limits. Spleen: Calcified splenic granulomas.. Adrenals: Within normal limits. Kidneys, ureters and bladder: Symmetric enhancement of the kidneys. No renal calculi or hydronephrosis. Urinary bladder is within normal limits. Reproductive organs: Reproductive organs are within normal limits. Stomach and bowel: Normal stomach. No abnormally dilated loops of small or large bowel. The appendix is normal. Lymph nodes: No enlarged lymph nodes. Peritoneum: No ascites or free air. No other fluid collection. Vessels: Aorta and major branches are patent without aneurysm or significant stenosis. Portal vein and superior mesenteric vein are patent. Bones/Soft tissues: Skeletal structures: Multiple displaced posterior and lateral rib fractures involving the left fifth through eighth ribs. Soft tissue: Bilateral fat-containing inguinal hernias. Procedure Note Olaf Greene MD - 12/09/2023 Indication: Patient transferred from [facility] due toTrauma. No initial report accompanied the patient and/or Dr. REESE requested an interpretation by me. Technique: CT scan of the chest/abdomen/pelvis done on 12/09/2023 with IVcontrast. 3 mm axial, sagittal and coronal reconstructions reviewed insoft tissue and bone windows, per the local institution's scanningprotocols, which may differ from the [facility] trauma protocols. Findings: Chest: Lungs: Airway: Patent Lungs: No definite pneumothorax. A few scattered foci of gas within asmall volume left pleural fluid with simple fluid attenuation. Bilateraldependent subpleural opacities, likely atelectasis. Focal opacities in thelingula, likely atelectasis versus small contusion. Chest wall: Multiple left rib fractures (described below) with smallamount of subcutaneous gas tracking along the posterolateral chest wall. Mediastinum: Thyroid:Normal Vessels: Normal caliber of the aorta and main pulmonary artery. Heart and pericardium: Cardiac size is normal. No pericardial effusion. Nosignificant coronary artery calcium. Tiny focus of air in the anteriormediastinal fat pad, anterior to the heart. Lymph nodes: No enlarged thoracic lymph nodes Esophagus: Unremarkable Abdomen/Pelvis: Liver: Diffuse hepatic hypoattenuation, which may represent hepaticsteatosis. No acute hepatic injury.. Gallbladder and biliary tree: No calcified gallstones. No intra- orextrahepatic biliary ductal dilation. Pancreas: Within normal limits. Spleen: Calcified splenic granulomas.. Adrenals: Within normal limits. Kidneys, ureters and bladder: Symmetric enhancement of the kidneys. Norenal calculi or hydronephrosis. Urinary bladder is within normallimits. Reproductive organs: Reproductive organs are within normal limits. Stomach and bowel: Normal stomach. No abnormally dilated loops of small orlarge bowel. The appendix is normal. Lymph nodes: No enlarged lymph nodes. Peritoneum: No ascites or free air. No other fluid collection. Vessels: Aorta and major branches are patent without aneurysm orsignificant stenosis. Portal vein and superior mesenteric vein arepatent. Bones/Soft tissues: Skeletal structures: Multiple displaced posterior and lateral ribfractures involving the left fifth through eighth ribs. Soft tissue: Bilateral fat-containing inguinal hernias. IMPRESSION Impression: 1. Left posterior and lateral sixth through eighth rib fractures. 2. Small simple fluid attenuating left pleural effusion with a few smallfoci of extrapleural air within the collection. 3. Confluent left greater than right basilar opacities, favored torepresent atelectasis. Focal opacity in the lingula could also represent asmall pulmonary contusion. I have personally reviewed the image(s) and initial interpretation, and Iagree with the findings as documented by the resident/fellow. Reading Radiologist: Olaf Greene Reading Resident: Domi Pena José Ansari MD RAD CT BODY * EXTRA TUBE - SST (12/09/2023 5:08 PM CDT) SST TUBE Stored [facility] Comment:SST tubes (Serum Sep arator) are stored in the lab for 3 days from the collection date. Blood 12/09/2023 5:08 PM CDT 12/09/2023 5:19 PM CDT José Ansari MD LABORATORY [facility] [address] [address] * PRECAUTIONARY TUBE (12/09/2023 5:08 PM CDT) Pathologist [facility] Prec Tube Precautionary Blood Bank Specimen Received. [facility] Blood 12/09/2023 5:08 PM CDT 12/09/2023 6:03 PM CDT José Ansari MD LAB TRANSFUSION SERV ICES [facility] [address] [address] * ED INR (12/09/2023 5:07 PM CDT) ED INR 1.1 0.8 - 1.1 [facility] Comment: Warfarin Therapeutic Range: Standard Intensity: 2.0 - 3.0 High Intensity: 2.5 - 3.5 This is a rapid INR screening test which uses whole blood; results may infrequently differ from plasma INR results. If medication adjustments/dosing are required a PT/INR test ([id number]) should be ordered and performed in the main laboratory. Blood 12/09/2023 5:07 PM CDT 12/09/2023 5:18 PM CDT José Ansari MD LABORATORY Performing Organization Address City/[facility]/ZIP Co de Phone Number [facility] [address] [address] * HS TROPONIN (12/09/2023 5:07 PM CDT) HS Troponin I <3 <=35 ng/L [facility] Blood 12/09/2023 5:07 PM CDT 12/09/2023 6:00 PM CDT Narrative [facility] - 12/09/2023 6:41 PM CDT First Occurrence of the Troponin order is to be drawn Stat by Nursing staff on the unit. José Ansari MD LABORATORY Performing Organization Address [facility] Co de Phone Number [facility] [address] [address] * (ABNORMAL) ED CHEMISTRY LABS(NA,K,CL,CO2,GLU,CREAT,CA-IONIZED,ANION GAP) (12/09/2023 5:07 PM CDT) Pathologist [facility] Sodium 137 135 - 148 mmol/L [facility] Chloride 108 92 - 108 mmol/L [facility] AnGap 7(L) 8 - 16 mmol/L [facility] Glucose 371(H) 70 - 100 mg/dL [facility] ICA, Actual 4.65 4.40 - 5.20 mg/dL [facility] ICA, pH Corrected 4.44 4.40 - 5.20 mg/dL [facility] Creatinine 0.93 0.70 - 1.25 mg/dL [facility] BICARB 22 22 - 26 mEq/L [facility] eGFR (2020 CKD-EPI) 99 >=60 ml/min/1.7 3m2 [facility] Comment: The estimated glomerular filtration rate (eGFR) was calculated using the CKD-EPI 2020 creatinine equation, which does not include race as a factor. This equation is validated in individuals 18 years of age and older, and eGFR is normalized to a body surface area of 1.73m^2. Potassium 5.1 3.5 - 5.3 mmol/L [facility] Blood 12/09/2023 5:07 PM CDT 12/09/2023 5:27 PM CDT José Ansari MD LABORATORY [facility] [address] [address] * (ABNORMAL) CBC WITH PLTS/AUTO DIFF (12/09/2023 5:07 PM CDT) WBC 15.81(H) 4.00 - 10.00 k/cmm [facility] RBC 5.77 4.60 - 6.00 m/cmm [facility] Hgb 16.8 13.1 - 17.5 g/dL [facility] Hematocrit 50.1 40.0 - 51.0 % [facility] MCV 86.8 80.0 - 100.0 fL [facility] MCH 29.1 25.0 - 32.0 pg [facility] MCHC 33.5 31.0 - 36.0 g/dL [facility] RDW 12.4 11.5 - 14.5 % [facility] Plt 225 150 - 400 k/cmm [facility] MPV 11.8 6.5 - 12.5 fL [facility] Automated Abs Neutrophil 13.41(H) 1.70 - 6.50 k/cmm [facility] Comment:Preliminary ANC, Fin al Result to Follow Abs Immature Granulocyte 0.06 0.00 - 0.09 k/cmm [facility] Comment:The Immature Granulo cyte Absolute count contains metamyelocytes and myelocytes. Abs Neutrophil 13.41(H) 1.70 - 6.50 k/cmm [facility] Abs Lymphocyte 1.36 0.80 - 4.00 k/cmm [facility] Abs Monocyte 0.93 0.20 - 1.00 k/cmm [facility] Abs Eosinophil 0.02 0.00 - 0.60 k/cmm [facility] Abs Basophil 0.03 0.00 - 0.20 k/cmm [facility] Blood 12/09/2023 5:07 PM CDT 12/09/2023 6:00 PM CDT José Ansari MD LABORATORY Performing Organization Address City/[facility]/ZIP Co de Phone Number [facility] [address] [address] * ED HEMOGLOBIN TOTAL (ED ONLY) (12/09/2023 5:07 PM CDT) Hgb 17.2 13.1 - 17.5 g/dL [facility] Blood 12/09/2023 5:07 PM CDT 12/09/2023 5:27 PM CDT José Ansari MD LABORATORY Performing Organization Address [facility] Co de Phone Number [facility] [address] [address] * PANEL HEPATIC FUNCTION (12/09/2023 5:07 PM CDT) Total Protein 7.2 6.4 - 8.3 g/dL [facility] Albumin 4.1 3.8 - 5.1 g/dL [facility] Bili Total 0.3 <=1.2 mg/dL [facility] Bili Direct na <=0.3 mg/dL [facility] Comment:BILID = <0.2. Accura cy of result suspect due to hemolysis. Alk Phos 93 40 - 129 IU/L [facility] Comment:No reference range e stablished for patients <18 years old. ALT (SGPT) 37 <=41 IU/L [facility] AST(SGOT) na 5 - 40 IU/L [facility] Comment:AST = 33. Accuracy o f result suspect due to hemolysis. Blood 12/09/2023 5:07 PM CDT 12/09/2023 6:00 PM CDT José Ansari MD LABORATORY Performing Organization Address City/[facility] Co de Phone Number [facility] [address] [address] * LACTATE (LACTIC ACID) (12/09/2023 5:07 PM CDT) [facility] Lactate 1.8 0.7 - 2.1 mmol/L [facility] Blood 12/09/2023 5:07 PM CDT 12/09/2023 5:27 PM CDT Narrative [facility] - 12/09/2023 5:27 PM CDT Send specimen on ice! José Ansari MD LABORATORY [facility] [address] [address] * (ABNORMAL) BLOOD GASES (12/09/2023 5:07 PM CDT) [facility] PH Timo 7.31(L) 7.32 - 7.42 [facility] PCO2 Timo 45 41 - 51 mmHG [facility] PO2 Timo 68(H) 25 - 40 mmHG [facility] Bicarb Timo 22(L) 24 - 28 mEq/L [facility] O2 Sat Timo 94 % [facility] Base Exc Timo -3.9 -10.0 - 2.0 mmol/L [facility] Blood Venous 12/09/2023 5:07 PM CDT 12/09/2023 5:27 PM CDT José Ansari MD LABORATORY Performing Organization Address [facility]/ZIP Co de Phone Number [facility] [address] [address] * FIBRINOGEN (12/09/2023 5:07 PM CDT) [facility] Fibrinogen 327 200 - 400 mg/dL [facility] Blood 12/09/2023 5:07 PM CDT 12/09/2023 6:00 PM CDT José Ansari MD LABORATORY [facility] [address] [address] * ETHANOL (ETOH) LEVEL, BLOOD (12/09/2023 5:07 PM CDT) [facility] Ethanol Negative Negative g/dL [facility] Blood 12/09/2023 5:07 PM CDT 12/09/2023 6:00 PM CDT José Ansari MD LABORATORY [facility] [address] [address] * PTT (APTT) (12/09/2023 5:07 PM CDT) APTT 29.5 25.0 - 37.0 sec [facility] Blood 12/09/2023 5:07 PM CDT 12/09/2023 6:00 PM CDT José Ansari MD LABORATORY Performing Organization Address [facility] Co de Phone Number [facility] [address] [address] * ED US CRITICAL CARE (12/09/2023 5:05 PM CDT) Anatomical Region Laterality Modality Ultrasound Narrative 12/09/2023 7:24 PM CDT ED Trauma eFAST Ultrasound Indications: Suspicion of Abdomen Fluid/Blood, Suspicion of Pneumothorax/Hemothorax, and Other general symptoms and signs Window: Cardiac Window, Heptorenal Window, Perisplenic Window, Pelvic Window, and Thoracic Window Findings: No Pericardial Effusion identified, No Free Intraperitoneal Fluid identified, No Pleural Effusion identified, and Lung Sliding Present Bilaterally Impression: No Pericardial Effusion identified, No Free Intraperitoneal Fluid identified, No Pleural Effusion identified, and No Pneumothorax Identified Jesse An MD, 12/09/2023 6:22 PM ED Attending Ultrasound Note: I have personally reviewed the image(s) and initial interpretation, and I agree with the findings as documented. José Ansari MD, 12/09/2023 7:24 PM José Ansari MD RAD ED ULT from Last 3 Months Advance Directives For more information, please contact: [phone] * Full Code (Latest Code Status on File) Date Activated Date Inactivated Comments 12/09/2023 6:44 PM 12/12/2023 7:42 PM Question Answer Comments Does the Patient have prefer ences regarding life sustaining measures (these options only apply when the patient has a pulse): No Discussed Code Status With Whom? Not discussed Care Teams Refinery Operator [employer] [facility] Relationship Specialty Start Date End Date Pcp, [place] [address] PCP - General 03/31/08
--- OUTSIDE RECORDS SUMMARY | 2024-03-06 11:27 | XMS_ITS | Encounter Summary ---
Author Organization [facility] Address [address] [place] [phone] Phone Care Team Providers Care Sap Security Consultant Name Role Phone Pcp, No Primary Care Provider Unavailabl e Reason for Visit * Reason Comments Diabetes Education Class * Service Request (Routine) - New Request Specialty Diagnoses / Procedures Referred By Denny t Referred To Contact Diabetes Ed DSMT Diagnoses Type 2 diabetes mellitus without complication, without long-term current use of insulin (CMS/HHS) Debbie Lacy, DEAN, CHARTING CLERK [address] [address] Referral ID Status Reason Start Date Expiration Date V isits Requested Visits Authorized [id number] New Request 12/10/2023 12/09/2024 10 10 Encounter Details Date Type Department Care Team (Late st Contact Info) Description 01/24/2024 9:10 AM CDT [facility] Only [facility] [address] [address] Amy Santoyo MD [address] [place] [address] [phone] Collette Serrano, RN, [facility] [address] [place] [address] Type 2 diabetes mellitus with diabetic neuropathy, with long-term current use of insulin (CMS/HHS) (Primary Dx) Discharge Disposition: Discharged to home [...] PM CDT documented as of this encounter Patient Instructions * Patient Instructions* Coleltte Serrano RN, JOANNA - 01/24/2024 9:10 AM CDT Check sugars daily. Alternate times you check sugars. documented in this encounter Progress Notes * Collette Serrano RN, JOANNA - 01/24/2024 9:10 AM CDT DIABETES EDUCATION PROGRAM ASSESSMENT VISIT Data: Lyle Boland is a 53 y.o. male with Diabetes Type: Type 2; . Accompanied today by: Unaccompanied Barriers to diabetes learning and self-care: none Is hoping to find diab ed closer to home. 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 Patient has been referred for management diabetes training. See certified lactation educator flowsheet for blood glucose values. Lab Results Component Value Date/Time HGBA1C 11.1 (H) 12/10/2023 05:06 AM BP Readings from Last 1 Encounters: 12/12/23 133/89 Wt Readings from Last 1 Encounters: 12/09/23 99.1 kg (218 lb 7.6 oz) See diabetes clinical flowsheet for lab values. See patient education record. See medication list for meds taken. See diabetes education program assessment/history flowsheet. Self-monitoring of blood glucose is done by the patient: 2x day ACTION: Diabetes Education Program Assessment/History questionnaires reviewed and individualized teaching plan established. Written and verbal instruction given on: daily schedule, diabetes medications, self-blood glucose monitoring, hyper/hypoglycemia, and goal setting Demonstration(s) and/or return demonstration(s) on the following:not applicable Diabetes management book given Showed how to use ADA website diabetes.org suggest schedule follow up with BERTIN MARSHALL and TANVI MARSHALL and if he can get education closer to home will cx appointment here foreducation. Has primary visit scheduled pm 9-18 RESPONSE: Patient actively participated in learning process and asked appropriate questions voices understanding of hypo and hyperglycemia. Start time of session: 904 End time of session: 953 [id number] individual education time was 49 minutes. See certified lactation educator flowsheet for behavioral goals and outcomes. Individualized behavioral goal(s): test sugars daily, alternate times of testing PLAN: The patient will return The patient to check their blood glucose daily. The patient is to call the clinic if their blood glucose is less than 70 twice in one week or theirblood glucose is over 200 for 3 consecutive days. Collette Serrano RN, JOANNA, 01/24/2024 10:15 AM documented in this encounter Plan of Treatment Upcoming Encounters Date Type Department Care Team (Late st Contact Info) Description 03/18/2024 9:10 AM CDT [facility] [address] [place] [id number],[place] [id number] Scheduled Discharge Disposition: Discharged to home or self care 03/18/2024 10:20 AM CDT [facility] [address] [place] [phone] Collette Serrano RN, [address] [address] Scheduled Discharge Disposition: Discharged to home or self care documented as of this encounter Visit Diagnoses Diagnosis Type 2 diabetes mellitus with diabetic neuropathy, with long-term current use of insulin (CMS/HHS)- Primary documented in this encounter Care Teams Sap Security Consultant Relationship Specialty Start Date End Date Pcp, No [place] [place] [address] PCP - General 03/31/08 documented as of this encounter
--- OUTSIDE RECORDS SUMMARY | 2024-03-06 11:27 | XMS_ITS | Encounter Summary ---
Author Organization [facility] Address [address] [place] [phone] Phone Care Team Providers Care Collaborative Physician Name Role Phone Pcp, No Primary Care Provider Unavailabl e Encounter Details Date Type Department Care Team (Latest Contact Info) Description 01/09/2024 Travel Social History Tobacco Use Types Packs/Day [...] [facility] [address] [place] [phone],[place] [phone] Scheduled Discharge Disposition: Discharged to home or self care 03/18/2024 10:20 AM CDT [facility] [address] [place] [phone] Collette Serrano RN, [address] [address] Scheduled Discharge Disposition: Discharged to home or self care documented as of this encounter Visit Diagnoses Not on filedocumented in this encounter Care Teams Collaborative Physician Relationship Specialty Start Date End Date Pcp, [place] [address] PCP - General 03/31/08 documented as of this encounter
--- OUTSIDE RECORDS SUMMARY | 2024-03-06 11:27 | XMS_ITS | Clinical Summary ---
Author Organization [employer] Address [address] [place] [address]. [place] [address] Phone Care Team Providers Care Control Area Operator Name Role Phone Pcp, No Primary Care Provider Unavailabl e Source Comments [employer] is fully rolled out on [employer]. Last update 11/20/08.[facility] Allergies No known active allergies Medications * [...] ribs of left side, initial encounter 12/09/2023 Encounters Date Type Department Care Team Description 01/24/2024 9:10 AM CDT Nurse Only [facility] [address] [address] Amy Satnoyo MD Jesness, Linda R, RN, [facility] Type 2 diabetes mellitus with diabetic neuropathy, with long-term current use of insulin ([facility]) (Primary Dx) Discharge Disposition: Discharged to home or self care 01/24/2024 Travel 01/09/2024 10:13 AM CDT - 01/09/2024 11:59 PM CDT [facility] Encounter [facility] [address] [address] Alex Lacy MD Discharge Disposition: Discharged to home or self care 01/09/2024 10:00 AM CDT Office Visit [facility] [address] [address] Alex Lacy MD Benign neoplasm of aryepiglottic fold (Primary Dx); Vallecular cyst Discharge Disposition: Discharged to home or self care 01/09/2024 Travel 12/13/2023 Documentation Only Unspecified Department [place] Unknown, Provider 12/11/2023 [...] - 12/12/2023 4:37 PM CDT Hospital Encounter [facility] Surgery/Trauma/Neuro [address] [place] [address] Blaine Vasquez MD Closed fracture of multiple ribs of left side, initial encounter Discharge Disposition: Discharged to home or self care 12/09/2023 Orders Only Unspecified Department [place] Unknown, Provider from Last 3 Months Social History Tobacco [...] [facility] [address] [place] [address] [address],LD,[address] [address] Scheduled Discharge Disposition: Discharged to home or self care 03/18/2024 10:20 AM CDT Nurse Only [facility] [address] [place] [address] Collette Serrano RN, [address] [address] Scheduled Discharge Disposition: Discharged to home or self care Health Maintenance Due Date Last Done Comments CT Colonography 1971 Colonoscopy 1971 Colorectal Cancer Screening 1971 Dental Oral Exam 1971 Dental Prophylaxis 1971 Dental X-Ray: Bitewings 1971 FIT/Cologuard 1971 Sigmoidoscopy 1971 iFOB/FIT 1971 Lipid Screening 11/29/1972 Periodontal Maintenance 11/29/1985 HIV Screening 11/29/1986 PREVENTATIVE VISIT 11/29/1989 HEALTH MAINTENANCE PROTOCOL 11/29/1990 Imm: HepB (1 of 3 - 19+ 3-do se series) 11/29/1990 Imm: Pneumonia Peds or At-Ri sk less than 65 years (2 of 2 - PCV) 12/31/2014 12/31/2013 Imm: DTaP/Tdap (3 - Td or Tdap) 05/01/2018 10/29/2017, 02/13/2003 Imm: Zoster (1 of 2) 11/29/2021 Imm: COVID-19 ( season) 2024 06/23/2021, 10/10/2020, 09/12/2020 Imm: Flu (#1) 02/17/2024 04/26/2023, 03/26/2021 Imm: HPV Aged Out No longer eligi ble based on patient's age to complete this topic Imm: HepA Aged Out No longer eligi ble based on patient's age to complete this topic Imm: Hib Aged Out No longer eligi ble based on patient's age to complete this topic Imm: Meningitis Aged Out No longer el igible based on patient's age to complete this topic [...] DIGITAL (01/09/2024 2:20 PM CDT) Narrative User, [id number] - 01/09/2024 2:20 PM CDT See ENT Clinic note from same date for procedure result. Alex Lacy MD RAD ENT ENDOSCOPY * ANTI XA ASSAY LMW HEPARIN (12/12/2023 1:16 PM CDT) Anti XA LMW 0.08 IU/mL [facility] Comment: Anti Xa Assay LMW Heparin Therapeutic Ranges: 0.4-1.1 IU/mL for twice daily 1.0-2.0 IU/mL for once daily Blood 12/12/2023 1:16 PM CDT 12/12/2023 1:36 PM CDT Blaine Vasquez MD LABORATORY [facility] [address] [address] * (ABNORMAL) POC GLUCOSE (12/12/2023 10:56 AM CDT) Only the most recent of11 resultswithin the time period is included. POC Glucose 254(H) 70 - 100 mg/dL [facility] Blood 12/12/2023 10:5 6 AM CDT Blaine Vasquez MD LABORATORY Performing Organization Address [facility] Co de Phone Number [facility] [address] [place] [address], * (ABNORMAL) PANEL BASIC METABOLIC (BMP) (12/12/2023 6:09 AM CDT) Only the most recent of3 resultswithin the time period is included. AnGap 8 8 - 16 mmol/L [facility] Calcium 9.2 8.6 - 10.0 mg/dL [facility] Chloride 99 92 - 108 mmol/L [facility] CO2 31(H) 22 - 30 mmol/L [facility] Glucose 199(H) 70 - 100 mg/dL [facility] Creatinine 0.89 0.70 - 1.25 mg/dL [facility] Sodium 138 135 - 148 mmol/L [facility] Potassium 4.8 3.5 - 5.3 mmol/L [facility] eGFR (2020 CKD-EPI) 103 >=60 ml/min/1.[address] [facility] Comment: The estimated glomerular filtration rate (eGFR) was calculated using the CKD-EPI 2020 creatinine equation, which does not include race as a factor. This equation is validated in individuals 18 years of age and older, and eGFR is normalized to a body surface area of 1.73m^2. BUN 13 6 - 20 mg/dL [facility] Blood 12/12/2023 6:09 AM CDT 12/12/2023 6:21 AM CDT Blaine Vasquez MD LABORATORY Performing Organization Address City/[facility]/ZIP Co de Phone Number [facility] [address] [address] * CBC WITH PLATELET (12/12/2023 6:09 AM CDT) Only the most recent of3 resultswithin the time period is included. WBC 8.94 4.00 - 10.00 k/cmm [facility] RBC 5.09 4.60 - 6.00 m/cmm [facility] Hgb 15.1 13.1 - 17.5 g/dL [facility] Hematocrit 44.0 40.0 - 51.0 % [facility] MCV 86.4 80.0 - 100.[address] [facility] MCH 29.7 25.0 - 32.[address] [facility] MCHC 34.3 31.0 - 36.0 g/dL [facility] RDW 12.3 11.5 - 14.5 % [facility] Plt 169 150 - 400 k/cmm [facility] MPV 11.4 6.5 - 12.[address] [facility] Blood 12/12/2023 6:09 AM CDT 12/12/2023 6:22 AM CDT Blaine Vasquez MD LABORATORY Performing Organization Address City/[facility] Co de Phone Number [facility] [address] [address] * TELEMETRY STRIPS (12/11/2023 9:18 AM CDT) [...] Hemoglobin A1C 11.1(H) 4.0 - 5.6 % [facility] Comment: Increased risk for diabetes (prediabetes): 5.7-6.4% Diabetes >=6.5% In the absence of unequivocal hyperglycemia, diagnosis requires two abnormal test results (i.e. HbA1c and glucose) or two abnormal results from specimens collected at two different timepoints. The presence of some hemoglobin variants or red cell disorders may interfere with the measurement of hemoglobin A1c (HbA1c). Estimated Average Glucose 272(H) 68 - 114 [facility] Comment: The estimated Average Glucose (eAG) was calculated using an equation derived from a study of 507 adults with type 1, type 2, or no diabetes. Minority populations were underrepresented and children were not included. The eAG is not equivalent to a fasting glucose concentration. Blood 12/10/2023 5:06 AM CDT 12/10/2023 7:31 AM CDT Blaine Vasquez MD LABORATORY [facility] [address] [address] * CT SPINE THORACIC NO IV CON [...] Reading Radiologist: Michael Flood Resident: Brandi Diamond Narrative 12/10/2023 8:16 AM CDT Thoracic and Lumbar [...] MD ?? Consent: ??Consent obtained: ??Emergent situation [place] protocol: ??Patient identity confirmed: ??Verbally with patient [...] Reading Radiologist: June Silvestre Resident: Domi Pena 12/09/2023 6:29 PM CDT Indication: ??Patient transferred from [facility] due to Trauma. ??No initial report accompanied the patient and/or Dr. ??JOSÉ ANSARI requested an interpretation by me. Technique: ??CT scan of the cervical spine done on 12/09/2023 without IV contrast. ??3 mm axial, sagittal and coronal reconstructions reviewed in soft tissue and bone windows, per the local institution's scanning protocols, which may differ from the [facility] trauma protocols. Findings: ?? The lateral masses [...] folds measuring approximately 1.9 x 1.2 cm (3/66). Please refer to separately dictated CT chest abdomen pelvis from same day for further discussion of intrathoracic findings. Procedure Note June Silvestre MD - 12/09/2023 Indication: Patient transferred from [facility] due toTrauma. No initial report accompanied the patient and/or Dr. REESE requested an interpretation by me. Technique: CT scan of the cervical spine done on 12/09/2023 without IVcontrast. 3 mm axial, sagittal and coronal reconstructions reviewed insoft tissue and bone windows, per the local institution's scanningprotocols, which may differ from the [facility] trauma protocols. Findings: The lateral masses of [...] aryepiglottic folds measuringapproximately 1.9 x 1.2 cm (3/66). Please refer to separately dictated CT chest [...] by the resident/fellow. Reading Radiologist: June Silvestre Reading Resident: Domi Pena José Ansari MD [...] by the resident/fellow. Reading Radiologist: June Silvestre Reading Resident: Domi Pena 12/09/2023 7:48 PM CDT Indication: ??Patient transferred from [facility] due to Trauma. ??No initial report accompanied the patient and/or Dr. ??JOSÉ ASNARI requested an interpretation by me. Technique: ??CT scan of the head done on 12/09/2023 without IV contrast. ??3 mm axial and coronal reconstructions reviewed in soft tissue and bone windows, per the local institution's scanning protocols, which may differ from the [facility] trauma protocols. Findings: ?? Coker-white differentiation is [...] MD - 12/09/2023 Indication: Patient transferred from [facility] dueto Trauma. No initial report accompanied the patient and/or Dr. REESE requested an interpretation by me. Technique: CT scan of the head done on 12/09/2023 without IV contrast. 3mm axial and coronal reconstructions reviewed in soft tissue and bonewindows, per the local institution's scanning protocols, which may differfrom the [facility] trauma protocols. Findings: Coker-white differentiation is intact [...] by the resident/fellow. Reading Radiologist: Olaf Greene Resident: Domi Pena Narrative 12/09/2023 6:30 PM CDT Indication: ??Patient transferred from [facility] due to Trauma. ??No initial report accompanied the patient and/or Dr. ??JOSÉ ANSARI requested an interpretation by me. Technique: ??CT scan of the chest/abdomen/pelvis done on 12/09/2023 with IV contrast. ??3 mm axial, sagittal and coronal reconstructions reviewed in soft tissue and bone windows, per the local institution's scanning protocols, which may differ from the [facility] trauma protocols. Findings: ?? Chest: ?? Lungs: [...] MD - 12/09/2023 Indication: Patient transferred from [facility] due toTrauma. No initial report accompanied the patient and/or Dr. REESE requested an interpretation by me. Technique: CT scan of the chest/abdomen/pelvis done on 12/09/2023 with IVcontrast. 3 mm axial, sagittal and coronal reconstructions reviewed insoft tissue and bone windows, per the local institution's scanningprotocols, which may differ from the [facility] trauma protocols. Findings: Chest: Lungs: Airway: Patent [...] TUBE - SST (12/09/2023 5:08 PM CDT) Pathologist [facility] SST TUBE Stored [facility] Comment:SST tubes (Serum Sep arator) are stored in the lab for 3 days from the collection date. Blood 12/09/2023 5:08 PM CDT 12/09/2023 5:19 PM CDT José Ansari MD LABORATORY Performing Organization Address City/[facility]/ZIP Co de Phone Number [facility] [address] [address] * PRECAUTIONARY TUBE (12/09/2023 5:08 PM CDT) [facility] Prec Tube Precautionary Blood Bank Specimen Received. [facility] Blood 12/09/2023 5:08 PM CDT 12/09/2023 6:03 PM CDT José Ansari MD LAB TRANSFUSION SERV ICES Performing Organization Address [facility] Co de Phone Number [facility] [address] [address] * ED INR (12/09/2023 5:07 PM CDT) [facility] ED INR 1.1 0.8 - 1.1 [facility] Comment: Warfarin Therapeutic Range: Standard Intensity: 2.0 - 3.0 High Intensity: 2.5 - 3.5 This is a rapid INR screening test which uses whole blood; results may infrequently differ from plasma INR results. If medication adjustments/dosing are required a PT/INR test ([id number]) should be ordered and performed in the main laboratory. Blood 12/09/2023 5:07 PM CDT 12/09/2023 5:18 PM CDT José Ansari MD LABORATORY Performing Organization Address City/[facility] Co de Phone Number [facility] [address] [address] * HS TROPONIN (12/09/2023 5:07 PM CDT) [facility] HS Troponin I <3 <=35 ng/L [facility] Blood 12/09/2023 5:07 PM CDT 12/09/2023 6:[address] [facility] - 12/09/2023 6:41 PM CDT First Occurrence of the Troponin order is to be drawn Stat by Nursing staff on the unit. José Ansari MD LABORATORY Performing Organization Address [facility] Co de Phone Number [facility] [address] [address] * (ABNORMAL) ED CHEMISTRY LABS(NA,K,CL,CO2,GLU,CREAT,CA-IONIZED,ANION GAP) (12/09/2023 5:07 PM CDT) Sodium 137 135 - 148 mmol/L [facility] Chloride 108 92 - 108 mmol/L [facility] AnGap 7(L) 8 - 16 mmol/L [facility] Glucose 371(H) 70 - 100 mg/dL [facility] ICA, Actual 4.65 4.40 - 5.20 mg/dL [facility] ICA, pH Corrected 4.44 4.40 - 5.20 mg/dL [facility] Creatinine 0.93 0.70 - 1.25 mg/dL [facility] BICARB 22 22 - 26 mEq/L [facility] eGFR (2020 CKD-EPI) 99 >=60 ml/min/1.[address] [facility] Comment: The estimated glomerular filtration rate (eGFR) was calculated using the CKD-EPI 2020 creatinine equation, which does not include race as a factor. This equation is validated in individuals 18 years of age and older, and eGFR is normalized to a body surface area of 1.73m^2. Potassium 5.1 3.5 - 5.3 mmol/L [facility] Blood 12/09/2023 5:07 PM CDT 12/09/2023 5:27 PM CDT José Ansari MD LABORATORY Performing Organization Address [facility]/ZIP Co de Phone Number [facility] [address] [address] * (ABNORMAL) CBC WITH PLTS/AUTO DIFF (12/09/2023 5:07 PM CDT) WBC 15.81(H) 4.00 - 10.00 k/cmm [facility] RBC 5.77 4.60 - 6.00 m/cmm [facility] Hgb 16.8 13.1 - 17.5 g/dL [facility] Hematocrit 50.1 40.0 - 51.0 % [facility] MCV 86.8 80.0 - 100.[address] [facility] MCH 29.1 25.0 - 32.[address] [facility] MCHC 33.5 31.0 - 36.0 g/dL [facility] RDW 12.4 11.5 - 14.5 % [facility] Plt 225 150 - 400 k/cmm [facility] MPV 11.8 6.5 - 12.[address] [facility] Automated Abs Neutrophil 13.41(H) 1.70 - 6.50 k/cmm [facility] Comment:Preliminary ANC, Fin al Result to Follow Abs Immature Granulocyte 0.06 0.00 - 0.09 k/cmm [facility] Comment:The Immature Granulo cyte Absolute count contains metamyelocytes and myelocytes. Abs Neutrophil 13.41(H) 1.70 - 6.50 k/cmm [facility] Abs Lymphocyte 1.36 0.80 - 4.00 k/cmm [facility] Abs Monocyte 0.93 0.20 - 1.00 k/cmm [facility] Abs Eosinophil 0.02 0.00 - 0.60 k/cmm [facility] Abs Basophil 0.03 0.00 - 0.20 k/cmm [facility] Blood 12/09/2023 5:07 PM CDT 12/09/2023 6:00 PM CDT José Ansari MD LABORATORY [facility] [address] [place] [id number] * ED HEMOGLOBIN TOTAL (ED ONLY) (12/09/2023 5:07 PM CDT) Hgb 17.2 13.1 - 17.5 g/dL [facility] Blood 12/09/2023 5:07 PM CDT 12/09/2023 5:27 PM CDT José Ansari MD LABORATORY Performing Organization Address City/[facility]/ZIP Co de Phone Number [facility] [address] [address] * PANEL HEPATIC FUNCTION (12/09/2023 5:07 PM CDT) Total Protein 7.2 6.4 - 8.3 g/dL [facility] Albumin 4.1 3.8 - 5.1 g/dL [facility] Bili Total 0.3 <=1.2 mg/dL [facility] Bili Direct na <=0.3 mg/dL [facility] Comment:BILID = <0.2. Accura cy of result suspect due to hemolysis. Alk Phos 93 40 - 129 IU/L [facility] Comment:No reference range e stablished for patients <18 years old. ALT (SGPT) 37 <=41 IU/L [facility] AST(SGOT) na 5 - 40 IU/L [facility] Comment:AST = 33. Accuracy o f result suspect due to hemolysis. Blood 12/09/2023 5:07 PM CDT 12/09/2023 6:00 PM CDT José Ansari MD LABORATORY Performing Organization Address [facility] Co de Phone Number [facility] [address] [address] * LACTATE (LACTIC ACID) (12/09/2023 5:07 PM CDT) Lactate 1.8 0.7 - 2.1 mmol/L [facility] Blood 12/09/2023 5:07 PM CDT 12/09/2023 5:[address] [facility] - 12/09/2023 5:27 PM CDT Send specimen on ice! José Ansari MD LABORATORY Performing Organization Address City/[facility]/ZIP Co de Phone Number [facility] [address] [address] * (ABNORMAL) BLOOD GASES (12/09/2023 5:07 PM CDT) PH Timo 7.31(L) 7.32 - 7.42 [facility] PCO2 Timo 45 41 - [address] [facility] PO2 Timo 68(H) 25 - [address] [facility] Bicarb Timo 22(L) 24 - 28 mEq/L [facility] O2 Sat Timo 94 % [facility] Base Exc Timo -3.9 -10.0 - 2.0 mmol/L [facility] Blood Venous 12/09/2023 5:07 PM CDT 12/09/2023 5:27 PM CDT José Ansari MD LABORATORY [address] [address] * FIBRINOGEN (12/09/2023 5:07 PM CDT) Pathologist [facility] Fibrinogen 327 200 - 400 mg/dL [facility] Blood 12/09/2023 5:07 PM CDT 12/09/2023 6:00 PM CDT José Ansari MD LABORATORY [address] [address] * ETHANOL (ETOH) LEVEL, BLOOD (12/09/2023 5:07 PM CDT) Pathologist [facility] Ethanol Negative Negative g/dL [facility] Blood 12/09/2023 5:07 PM CDT 12/09/2023 6:00 PM CDT José Ansari MD LABORATORY [facility] [address] [address] * PTT (APTT) (12/09/2023 5:07 PM CDT) Pathologist [facility] APTT 29.5 25.0 - 37.[address] [facility] Blood 12/09/2023 5:07 PM CDT 12/09/2023 6:00 PM CDT José Ansari MD LABORATORY [facility] [address] [place] [address] * ED US CRITICAL CARE (12/09/2023 5:05 [...] Advance Directives For more information, please contact: [phone] * Full Code (Latest Code Status on File) Date Activated Date Inactivated Comments 12/09/2023 6:44 PM 12/12/2023 7:42 PM Question Answer Comments Does the Patient have prefer ences regarding life sustaining measures (these options only apply when the patient has a pulse): No Discussed Code Status With Whom? Not discussed Care Teams Control Area Operator Relationship Specialty Start Date End Date Pcp, No [place] [place] [address] PCP - General 03/31/08
--- OUTSIDE RECORDS SUMMARY | 2024-03-06 11:27 | XMS_ITS | Encounter Summary ---
Author Organization [facility] Address [address] [place] [address] Phone Care Team Providers Care Tug Hand Name Role Phone Pcp, No Primary Care Provider Unavailabl e Encounter Details Date Type Department Care Team (Latest Contact Info) Description 01/09/2024 10:13 AM CDT - 01/09/2024 11:59 PM CDT Hospital Encounter [facility] [address] [id number] Alex Lacy MD [address] [place], [place] [phone] Discharge Disposition: Discharged to home or self [...] PM CDT documented as of this encounter Medications at Time of Discharge Medication Sig Dispensed Refills Start Date End Date acetaminophen (TYLENOL) 325 mg oral tablet Take 3 tablets (975 mg) by mouth every 6 hours as needed for Moderate Pain. 60 tablet 12/12/2023 bacitracin 500 unit/g externally external ointment Apply to elbow abrasion daily 28 g 12/13/2023 cyclobenzaprine (FLEXERIL) 10 mg oral Take 1 tablet (10 mg) by mouth 3 times daily as needed for Muscle Spasm(s). 20 tablet 12/12/2023 insulin pen needle 32g X 6 mm NotApplicabl misc Use 1 times per day. 100 each 12/12/2023 metFORMIN (GLUCOPHAGE) 500 mg oral TABS Take 2 tablets (1000 mg) by mouth twice daily with meals. 120 tablet 1 12/12/2023 contour NEXT EZ NotApplicabl meter Use as directed. 1 kit 12/11/2023 glucose blood (CONTOUR NEXT TEST) in vitro test strips Test 3 times daily. 100 Strip 11 12/11/2023 insulin GLARGINE (LANTUS SOLOSTAR) 100 units/mL subcutaneous SOPN SoloStar pen Inject 18 UNITS subcutaneously daily for 7 days, THEN 9 UNITS daily for 23 days. 15 mL 12/12/2023 01/11/2024 Sure Comfort lancets Test 3 times daily. 100 each 11 12/11/2023 01/24/2024 documented as of this encounter Plan of Treatment Upcoming Encounters Date Type Department Care Team (Late st Contact Info) Description 03/18/2024 9:10 AM CDT Nurse Only [facility] [address] [place] [phone],[place] [id number] Scheduled Discharge Disposition: Discharged to home or self care 03/18/2024 10:20 AM CDT [facility] [address] [place] [phone] Collette Serrano RN, [address] [address] Scheduled Discharge Disposition: Discharged to home or self care documented as of this encounter Procedures Procedure Name Priority Date/Time Associated Diagnosis Comments ENT LARYNGOSCOPY FLEX FIBER DIAG DIGITAL Routine 01/09/2024 2:20 PM CDT Benign neoplasm of aryepiglottic fold documented in this encounter Results * ENT LARYNGOSCOPY FLEX FIBER DIAG DIGITAL (01/09/2024 2:20 PM CDT) Narrative User, [id number] - 01/09/2024 2:20 PM CDT See ENT Clinic note from same date for procedure result. Alex Lacy MD RAD ENT ENDOSCOPY documented in this encounter Visit Diagnoses Diagnosis Benign neoplasm of aryepiglottic fold documented in this encounter Care Teams Tug Hand Relationship Specialty Start Date End Date Pcp, [place] [address] PCP - General 03/31/08 documented as of this encounter
--- OUTSIDE RECORDS SUMMARY | 2024-03-06 11:28 | XMS_ITS | Encounter Summary ---
Author Organization [facility] Address [address] [place] [phone] Phone Care Team Providers Care Billet Bed Operator Name Role Phone Pcp, No Primary Care Provider Unavailabl e Encounter Details Date Type Department Care Team (Late st Contact Info) Description 12/10/2023 Orders Only Unspecified Department [place] Unknown, Provider Social [...] [facility] [address] [place] [phone],[place] [id number] Scheduled Discharge Disposition: Discharged to home or self care 03/18/2024 10:20 AM CDT [facility] [address] [place] [phone] Collette Serrano RN, [address] [address] Scheduled Discharge Disposition: Discharged to home or self care documented as of this encounter Procedures Procedure Name Priority Date/Time Associated Diagnosis Comments TELEMETRY STRIPS 12/10/2023 6:14 PM CDT documented in this encounter Results * TELEMETRY STRIPS (12/10/2023 6:14 PM CDT) Narrative 12/10/2023 6:14 PM CDT Ordered by an unspecified provider. Provider Unknown RAD ECHO documented in this encounter Visit Diagnoses Not on filedocumented in this encounter Care Teams Billet Bed Operator Relationship Specialty Start Date End Date Pcp, [place] [address] PCP - General 03/31/08 documented as of this encounter
--- OUTSIDE RECORDS SUMMARY | 2024-03-06 11:28 | XMS_ITS | Encounter Summary ---
Author Organization [facility] Address [address] [place] [phone] Phone Care Team Providers Care Health Administration Teacher Name Role Phone Pcp, No Primary Care [...] [facility]ty [facility] [address] [place] [phone],[place],[address] [phone] Scheduled Discharge Disposition: Discharged to home or self care 03/18/2024 10:20 AM CDT [facility] [address] [place] [phone] Collette Serrano RN, [address] [address] Scheduled Discharge Disposition: Discharged to home or self care documented as of this encounter Procedures Procedure Name Priority Date/Time Associated Diagnosis Comments TELEMETRY STRIPS 12/10/2023 4:58 AM CDT documented in this encounter Results * TELEMETRY STRIPS (12/10/2023 4:58 AM CDT) Narrative 12/10/2023 4:58 AM CDT Ordered by an unspecified provider. Provider Unknown RAD ECHO documented in this encounter Visit Diagnoses Not on filedocumented in this encounter Care Teams Health Administration Teacher Relationship Specialty Start Date End Date Pcp, No [place] [place] [address] PCP - General 03/31/08 documented as of this encounter
--- OUTSIDE RECORDS SUMMARY | 2024-03-06 11:28 | XMS_ITS | Encounter Summary ---
Author Organization [facility] Address [address] [place] [phone] Phone Care Team Providers Care Clam Grader Name Role Phone Pcp, No Primary Care [...] [facility]ty [facility] [address] [place] [address],[place] [phone] Scheduled Discharge Disposition: Discharged to home or self care 03/18/2024 10:20 AM CDT [facility] Only [facility] [address] [place] [phone] Collette Serrano RN, [address] [address] Scheduled Discharge Disposition: Discharged to home or self care documented as of this encounter Procedures Procedure Name Priority Date/Time Associated Diagnosis Comments TELEMETRY STRIPS 12/10/2023 10:2 0 AM CDT documented in this encounter Results * TELEMETRY STRIPS (12/10/2023 10:20 AM CDT) Narrative 12/10/2023 10:20 AM CDT Ordered by an unspecified provider. Provider Unknown RAD ECHO documented in this encounter Visit Diagnoses Not on filedocumented in this encounter Care Teams Clam Grader Relationship Specialty Start Date End Date Pcp, No [place] [address] PCP - General 03/31/08 documented as of this encounter
--- OUTSIDE RECORDS SUMMARY | 2024-03-06 11:28 | XMS_ITS | Encounter Summary ---
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 12/11/2023 7:49 AM CDT 8.6 mg VTE Anti Xa Monitoring Does not apply, PROTOCOL, Starting on 12/10/23 at 1739, Until Sun12/12/23 at 1942 documented in this encounter Active and Recently Administered Medications Times are shown in CDT. Scheduled Medication Order 12/10/2023 12/11/2023 12/12/2023 acetaminophen (TYLENOL) tablet 975 mg 975 mg, Oral, TID, First dose on Sun12/09/23 at 1999, Until Discontinued 0747 (Given - Provider: Neida Rangel RN)1400 (Given - Provider: Neida Rangel RN)2100 (Not Given (removes Due time) - Provider: Sydni Dillon RN - Reason: Held per nurse) 0750 (Given - Provider: Neida Rangel RN)1404 (Given - Provider: Neida Rangel RN)2059 (Given - Provider: Marquita Dudley RN) 0805 (Given - Provider: Aracely Coates RN)1424 (Given - Provider: Aracely Coates RN) bacitracin 500 unit/g external ointment Topical, DAILY, 3 doses, First dose on Sun12/11/23 at 1310, Last dose on Sun12/13/23 at 0800 1407 (Given - Provider: Neida Rangel RN) 0824 (Given - Provider: Aracely Coates RN) cyclobenzaprine (FLEXERIL) tablet 10 mg 10 mg, Oral, TID, First dose (after last modification) on Sun12/11/23 at 1400, Until Discontinued 1404 (Given - Provider: Neida Rangel RN)2100 (Given - Provider: Marquita Dudley RN) 0805 (Given - Provider: Aracely Coates RN)1425 (Given - Provider: Aracely Coates RN) cyclobenzaprine (FLEXERIL) tablet 5 mg (CANCELED) 5 mg, Oral, TID, First dose on Sun12/09/23 at 2000, Until Discontinued 0747 (Given - Provider: Neida Rangel RN)1400 (Given - Provider: Neida Rangel RN)1950 (Given - Provider: Sydni Dillon RN) 0750 (Given - Provider: Neida Rangel RN) DC MED REC REVIEW BY PHARMACY(Linked Group 1) Discharge Date: 12/12/2023, Discharge Location: Home, Anticipated Discharge Time: After 2 pm, Discharge Medication Orders: DC Med Orders Final, Does not apply, PROTOCOL, Starting on Sun12/12/23 at 1250, Until Sun12/12/23 at 1942 enoxaparin (LOVENOX) 30 mg/0.3 mL injection 30 mg (CANCELED) 30 mg, Subcutaneous, Q12H, First dose on Sun12/10/23 at 2000, Until Discontinued 1950 (Given - Provider: Sydni Dillon RN) 0749 (Given - Provider: Neida Rangel RN)210 (Given - Provider: Marquita Dudley RN) 0805 (Given - Provider: Aracely Coates RN) enoxaparin (LOVENOX) 40 mg/0.4 mL injection 40 mg 40 mg, Subcutaneous, Q12H, First dose (after last modification) on Sun12/12/23 at 2000, Until Discontinued GABApentin (NEURONTIN) capsule 300 mg 300 mg, Oral, TID, First dose on Sun12/09/23 at 2000, Until Discontinued 0747 (Given - Provider: Neida Rangel RN)1400 (Given - Provider: Neida Rangel RN)1950 (Given - Provider: Sydni Dillon RN) 0750 (Given - Provider: Neida Rangel RN)1404 (Given - Provider: Neida Rangel RN)2100 (Given - Provider: Marquita Dudley RN) 0805 (Given - Provider: Aracely Coates RN)1425 (Given - Provider: Aracely Coates RN) insulin ASPART (NovoLOG) FlexPen Insulin Order Mode: Carb Based Dose, WITH Breakfast dose (Units/Carb Choice): 0.5, WITH Noon meal dose (Units/Carb Choice): 0.5, WITH Evening meal dose (Units/Carb Choice): 0.5, Glucose 130-150 (Units): 0, Glucose 151-200 (Units): 1, Glucose 201-250 (Units): 2, Glucose 251-300 (Units): 3, Glucose 301-350 (Units): 4, Glucose 351-400 (Units): 5, Glucose 401-500 (Units): 6, Glucose GREATER THAN 501 (Units): 7, Glucose GREATER THAN 501 instructions: Call Provider, Subcutaneous, TID AC, First dose on Sun12/10/23 at 0730, Until Discontinued 0743 (Dual Sign-Off - Provider: Neida Rangel RN)0750 (Given - Provider: Neida Rangel RN)1211 (Dual Sign-Off - Provider: Neida Rangel RN)1212 (Given - Provider: Neida Rangel RN)1611 (Dual Sign-Off - Provider: Neida Rangel RN)1616 (Given - Provider: Neida Rangel RN) 0613 (Dual Sign-Off - Provider: Sydni Dillon RN)0616 (Given - Provider: Sydni Dillon RN)1207 (Dual Sign-Off - Provider: Neida Rangel RN)1211 (Given - Provider: Neida Rangel RN)1819 (Dual Sign-Off - Provider: Marquita Dudley RN)1821 (Given - Provider: Marquita Dudley RN) 0819 (Dual Sign-Off - Provider: Aracely Coates RN)0822 (Given - Provider: Aracely Coates RN)1216 (Dual Sign-Off - Provider: Aracely Coates RN)1218 (Given - Provider: Aracely Coates RN)1630 (Due) insulin ASPART (NovoLOG) FlexPen Glucose 201-250 (Units): 0, Glucose 251-300 (Units): 1, Glucose 301-350 (Units): 2, Glucose 351-400 (Units): 3, Glucose 401-450 (Units): 4, Glucose 451-500 (Units): 5, Glucose GREATER THAN 501 (Units): 6, Glucose GREATER THAN 501 instructions: Call provider, Subcutaneous, BEDTIME MAY REPEAT ONCE, First dose on Sun12/09/23 at 2100, Until Discontinued 2110 (Not Given (removes Due time) - Provider: Sydni Dillon RN - Reason: Held per order) 2130 (Not Given (removes Due time) - Provider: Marquita Dudley RN - Reason: Per protocol) insulin GLARGINE (LANTUS) 18 UNITS injection vial 18 UNITS, Subcutaneous, Q24H, First dose on Sun12/11/23 at 0940, Until Discontinued 1206 (Dual Sign-Off - Provider: Neida Rangel RN)1211 (Given - Provider: Neida Rangel RN) 1009 (Dual Sign-Off - Provider: Aracely Coates RN)1011 (Given - Provider: Aracely Coates RN) lidocaine (LIDODERM) 5% patch 1 patch 1 patch, Transdermal, Q24H, First dose on Sun12/09/23 at 1845, Until Discontinued 0749 (Patch removed - Provider: Neida Rangel RN)1803 (Patch applied - Provider: Neida Rangel RN - Comment: left side) 0617 (Patch removed - Provider: Sydni Dillon RN)1821 (Patch applied - Provider: Marquita Dudley RN) 0557 (Patch removed - Provider: Christina Maloney RN) metFORMIN (GLUCOPHAGE) tablet 500 mg 500 mg, Oral, BID, First dose on Sun12/11/23 at 0940, Until Discontinued 1211 (Given - Provider: Neida Rangel RN)2141 (Given - Provider: Marquita Dudley RN) 0805 (Given - Provider: Aracely Coates RN) polyethylene glycol 3350 (MIRALAX;GLYCOLAX) packet 17 g 17 g, Oral, DAILY, First dose on Sun12/09/23 at 2000, Until Discontinued 0749 (Not Given (removes Due time) - Provider: Neida Rangel RN - Reason: NPO) 0749 (Given - Provider: Neida Rangel RN) 0805 (Given - Provider: Aracely Coates RN) sennosides (SENOKOT) tablet 8.6 mg 8.6 mg, Oral, BID, First dose on Sun12/09/23 at 2000, Until Discontinued 0747 (Given - Provider: Neida Rangel RN)1950 (Given - Provider: Sydni Dillon RN) 0749 (Given - Provider: Neida Rangel RN)2100 (Given - Provider: Marquita Dudley RN) 0804 (Given - Provider: Aracely Coates RN) VTE Anti Xa Monitoring Does not apply, PROTOCOL, Starting on Sun12/10/23 at 1739, Until Sun12/12/23 at 1942 Continuous Medication Order 12/10/2023 12/11/2023 12/12/2023 dextrose 5% - lactated ringers infusion (CANCELED) at 100 mL/hr, Intravenous, CONTINUOUS, Starting on Sun12/09/23 at 1845, Until Sun12/10/23 at 0852 0755 (New Bag - Provider: Neida Rangel RN)0800 (Infusing - Provider: Neida Rangel RN)1009 (Stopped - Provider: Neida Rangel RN) HYDROmorphone (DILAUDID) 1 mg/mL CADD (CANCELED) Basal Rate: 0 mg/hr, Demand Dose: 0.1 mg, Lockout Interval: 15 Minutes, Intravenous, PATIENT CONTROLLED ANALGESIA, Starting on Sun12/09/23 at 2045, Until Sun12/11/23 at 1007 0621 (Infusing - Provider: Gonzalez Bedolla RN)0800 (Dual Sign-Off - Provider: Neida Rangle RN)0801 (Rate Verify - Provider: Neida Rangel RN)0900 (Infusing - Provider: Neida Rangel RN)1008 (Infusing - Provider: Neida Rangel RN)1230 (Dual Sign-Off - Provider: Neida Rangel RN - Comment: Replaced pump, same cartridge, unknown resevoir) 1016 (Stopped - Provider: Neida Rangel RN) PRN Medication Order 12/10/2023 12/11/2023 12/12/2023 bisacodyl (DULCOLAX) suppository 10 mg 10 mg, Rectal, DAILY PRN, Starting on Sun12/12/23 at 0809, Until Sun12/12/23 at 1942, Constipation (Use Second) HYDROmorphone (DILAUDID) 1 mg/mL clinician activated bolus CADD (CANCELED) 0.2 mg, Intravenous, Q1H PRN, Starting on Sun12/09/23 at 2042, Until Sun12/11/23 at 1007, Severe Pain 0621 (New Bag - Provider: Gonzalez Bedolla RN)1135 (Clinician Bolus - Provider: Malathi Scruggs RN)2018 (New Bag - Provider: Sydni Dillon RN) 0003 (New Bag - Provider: Sydni Dillon RN)0448 (New Bag - Provider: Sydni Dillon RN) HYDROmorphone PF (DILAUDID) 1 mg/mL injection 0.3-0.5 mg (CANCELED) 0.3-0.5 mg, IV Push, Q3H PRN, Starting on Sun12/11/23 at 1007, Until Sun12/12/23 at 0810, Severe Pain (Use First) 1657 (Given - Provider: Marquita Dudley RN - Comment: increased pain when moving-room transfer)2209 (Given - Provider: Marquita Dudley RN) hydrOXYzine (ATARAX;VISTARIL) tablet 25 mg 25 mg, Oral, Q4H PRN, Starting on Sun12/11/23 at 1007, Until Sun12/12/23 at 1942, Anxiety, Pain insulin ASPART (NovoLOG) FlexPen WITH Snack Dose (Units/Carb Choice): 0.5, Subcutaneous, Q1H PRN, Starting on Sun12/11/23 at 1204, Until Sun12/12/23 at 1942, PRN with Snacks ondansetron (ZOFRAN) 4 mg/2 mL injection 4 mg(Linked Group 2) 4 mg, IV Push, TID PRN, Starting on Sun12/09/23 at 2049, Until Sun12/12/23 at 194, Nausea/Vomiting (Use First) 1447 (Given - Provider: Malathi Scruggs RN) 2140 (See Alternative - Provider: Marquita Dudley RN) ondansetron (ZOFRAN) 4 mg/5 mL oral solution 4 mg(Linked Group 2) 4 mg, Oral, TID PRN, Starting on Sun12/09/23 at 2049, Until Sun12/12/23 at 194, Nausea/Vomiting (Use First) 1447 (See Alternative - Provider: Malathi Scruggs RN) 2140 (Given - Provider: Marquita Dudley RN) oxyCODONE (ROXICODONE) tablet 5-10 mg 5-10 mg, Oral, Q4H PRN, Starting on Sun12/09/23 at 1844, Until Sun12/12/23 at 1942, Moderate Pain (Use First) 0803 (Given - Provider: Neida Rangel RN)1400 (Given - Provider: Neida Rangel RN)1950 (Given - Provider: Sydni Dillon, TANVI) 0002 (Given - Provider: Sydni Dillon RN)0453 (Given - Provider: Sydni Dillon RN)1010 (Given - Provider: Neida Rangel RN)1404 (Given - Provider: Neida Rangel RN)2100 (Given - Provider: Marquita Dudley RN) 0347 (Given - Provider: Christina Maloney RN) Linked Groups Order Group 1: DC MED REC REVIEW BY PHARMACYJump to med Discharge Date: 12/12/2023, Discharge Location: Home, Anticipated Discharge Time: After 2 pm, Discharge Medication Orders: DC Med Orders Final, Does not apply, PROTOCOL, Starting on Sun12/12/23 at 1250, Until Sun12/12/23 at 1942 And Discharge Med Rec Final Review by Pharmacy (CANCELED) Routine, Order to be placed by provider after medications have been entered for discharge and are ready for review by Pharmacist. This order can be placed multiple times if changes or additions have been made to medications for discharge. Choose the Preliminary DC Med Rec review when placing orders prior to the day of discharge. Choose Final DC Med Rec when all medication changes have been entered. If DC Med Rec needed now, please page the Pharmacist covering the patient to inform them., Discharge Date: 12/12/2023, Discharge Location: Home, Anticipated Discharge Time: After 2 pm Group 2: ondansetron (ZOFRAN) 4 mg/5 mL oral solution 4 mgJump to med 4 mg, Oral, TID PRN, Starting on 12/09/23 at 2049, Until Sun12/12/23 at 1942, Nausea/Vomiting (Use First) Or ondansetron (ZOFRAN) 4 mg/2 mL injection 4 mgJump to med 4 mg, IV Push, TID PRN, Starting on 12/09/23 at 2049, Until Sun12/12/23 at 1942, Nausea/Vomiting (Use First) documented in this encounter Care Teams Residential Service Technician Relationship Specialty Start Date End Date Pcp, [place] [address] PCP - General 03/31/08 documented as of this encounter
--- OUTSIDE RECORDS SUMMARY | 2024-03-06 11:28 | XMS_ITS | Encounter Summary ---
Author Organization [facility] Address [address] [place] [phone] Phone Care Team Providers Care Surgeon Assistant Name Role Phone Pcp, No Primary Care Provider Unavailabl e Encounter Details Date Type Department Care Team (Late st Contact Info) Description 12/11/2023 Orders Only Unspecified Department [place] Unknown, [...] [facility] [address] [place] [phone],[place],[address] [id number] Scheduled Discharge Disposition: Discharged to home or self care 03/18/2024 10:20 AM CDT Nurse Only [facility] [address] [place] [phone] Collette Serrano RN, [address] [address] Scheduled Discharge Disposition: Discharged to home or self care documented as of this encounter Procedures Procedure Name Priority Date/Time Associated Diagnosis Comments TELEMETRY STRIPS 12/11/2023 4:12 AM CDT documented in this encounter Results * TELEMETRY STRIPS (12/11/2023 4:12 AM CDT) Narrative 12/11/2023 4:12 AM CDT Ordered by an unspecified provider. Provider Unknown RAD ECHO documented in this encounter Visit Diagnoses Not on filedocumented in this encounter Care Teams Surgeon Assistant Relationship Specialty Start Date End Date Pcp, No [facility] [place] [address] PCP - General 03/31/08 documented as of this encounter
--- OUTSIDE RECORDS SUMMARY | 2024-03-06 11:28 | XMS_ITS | Encounter Summary ---
Author Organization [facility]amed [facility] Address [address] [place] [phone] Phone Care Team Providers Care Solar Sales Manager Name Role Phone Pcp, No Primary Care [...] & [facility] [address] [place] [phone],[place],[address] [id number] Scheduled Discharge Disposition: Discharged to home or self care 03/18/2024 10:20 AM CDT Nurse Only [facility] [address] [place] [phone] Collette Serrano RN, [address] [address] Scheduled Discharge Disposition: Discharged to home or self care documented as of this encounter Procedures Procedure Name Priority Date/Time Associated Diagnosis Comments TELEMETRY STRIPS 12/11/2023 9:18 AM CDT documented in this encounter Results * TELEMETRY STRIPS (12/11/2023 9:18 AM CDT) Narrative 12/11/2023 9:18 AM CDT Ordered by an unspecified provider. Provider Unknown RAD ECHO documented in this encounter Visit Diagnoses Not on filedocumented in this encounter Care Teams Solar Sales Manager Relationship Specialty Start Date End Date Pcp, [place] [address] PCP - General 03/31/08 documented as of this encounter
--- OUTSIDE RECORDS SUMMARY | 2024-03-06 11:28 | XMS_ITS | Encounter Summary ---
Author Organization [facility] Address [address] [place] [phone] Phone Care Team Providers Care Shift Engineer Name Role Phone Pcp, No Primary [...] [facility] [address] [place] [phone],[place],[address] [id number] Scheduled Discharge Disposition: Discharged to home or self care 03/18/2024 10:20 AM CDT Nurse Only [facility] [address] [place] [phone] Collette Serrano RN, [address] [address] Scheduled Discharge Disposition: Discharged to home or self care documented as of this encounter Procedures Procedure Name Priority Date/Time Associated Diagnosis Comments TELEMETRY STRIPS 12/10/2023 8:45 AM CDT documented in this encounter Results * TELEMETRY STRIPS (12/10/2023 8:45 AM CDT) Narrative 12/10/2023 8:45 AM CDT Ordered by an unspecified provider. Provider Unknown RAD ECHO documented in this encounter Visit Diagnoses Not on filedocumented in this encounter Care Teams Shift Engineer Relationship Specialty Start Date End Date Pcp, [place] [address] PCP - General 03/31/08 documented as of this encounter
--- OUTSIDE RECORDS SUMMARY | 2024-03-06 11:28 | XMS_ITS | Encounter Summary ---
Author Organization [facility][Note 3] Address [address] [place] [address] Phone Care Team Providers Care Cylinder Devalver Name Role Phone Pcp, No Primary Care Provider Unavailabl e Encounter Details Date Type Department Care Team (Late st Contact Info) Description 12/09/2023 Orders Only Unspecified Department [place] Unknown, [...] & Specialty Center [facility] [address] [place] [address],LD,[address] [phone] Scheduled Discharge Disposition: Discharged to home or self care 03/18/2024 10:20 AM CDT Nurse Only [facility] [address] [place] [address] Collette Serrano RN, [address] [address] Scheduled Discharge Disposition: Discharged to home or self care documented as of this encounter Procedures Procedure Name Priority Date/Time Associated Diagnosis Comments TELEMETRY STRIPS 12/09/2023 7:27 PM CDT documented in this encounter Results * TELEMETRY STRIPS (12/09/2023 7:27 PM CDT) Narrative 12/09/2023 7:27 PM CDT Ordered by an unspecified provider. Provider Unknown RAD ECHO documented in this encounter Visit Diagnoses Not on filedocumented in this encounter Care Teams Cylinder Devalver Relationship Specialty Start Date End Date Pcp, [place] [address] PCP - General 03/31/08 documented as of this encounter
== END 2024-03-04 07:36 | disposition home or self-care (01) ==
LOC: NFLDREF 03-06 11:23
PROVIDERS: PCP Registered Nurse; Visit Provider Registered Nurse
DX: Z00.00 Encounter for general adult medical examination without abnormal findings (principal); E11.9 Type 2 diabetes mellitus without complications; Z13.6 Encounter for screening for cardiovascular disorders
CPT/HCPCS: 80053; 80061; 82043; 82570

== ENCOUNTER 2024-03-17 09:25 | Outpatient (CLI) | payer OTHER, SELFPAY ==
--- OUTSIDE RECORDS SUMMARY | 2024-03-17 09:29 | XMS_ITS | Clinical Summary ---
Author Organization [facility] Address [place], [place] [address] Care Team Providers Care Power Wood Sawyer Name Role Phone Pcp, No Primary Care Provider Unavailabl e Allergies No known active allergies Medications No known medications Social History Tobacco Use Types Packs/Day Years [...] (1 of 2) 11/29/2021 COVID-19 vaccine series ( season) 2024 06/23/2021, 10/10/2020, 09/12/2020 Influenza for age 50-64 02/17/2024 Pneumococcal series for age 6-64 Aged Out No longer eligible b ased on patient's age to complete this topic Care Teams Power Wood Sawyer Relationship Specialty Start Date End Date Pcp, No . PCP - General 06/07/15
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
--- OUTSIDE RECORDS SUMMARY | 2024-03-17 09:29 | XMS_ITS | Referral Summary ---
Author Organization [facility] Address [address] [place] [address] Phone Care Team Providers Care Neuro Psych Sales Specialist Name Role Phone Pcp, No Primary Care Provider Unavailabl e Source Comments [employer] is fully rolled out on [employer]. Last update 11/20/08.[employer] Encounters Date Type Department Care Team Description 01/24/2024 Travel 01/24/2024 9:10 AM CDT Nurse Only [facility] [address] [place] [address] Aym Santoyo MD Jesness, Linda R, TANVI, [facility] Type 2 diabetes mellitus with diabetic neuropathy, with long-term current use of insulin ([facility]) (Primary Dx) Discharge Disposition: Discharged to home or self care 01/09/2024 10:13 AM CDT - 01/09/2024 11:59 PM CDT Hospital Encounter [facility] ENT Imaging [address] [place] [address] Alex Lacy MD Discharge Disposition: Discharged to home or self care 01/09/2024 Travel 01/09/2024 10:00 AM CDT Office Visit [facility] [address] [place] [address] Alex Lacy MD Benign neoplasm of aryepiglottic fold (Primary Dx); Vallecular cyst Discharge Disposition: Discharged to home or self care from Last 3 Months Allergies No known [...] Mass Index - - Plan of Treatment Not on file Procedures Procedure Name Priority Date/Time Associated Diagnosis Comments ENT LARYNGOSCOPY FLEX FIBER DIAG DIGITAL Routine 01/09/2024 2:20 PM CDT Benign neoplasm of aryepiglottic fold from Last 3 Months Results * ENT LARYNGOSCOPY FLEX FIBER DIAG DIGITAL (01/09/2024 2:20 PM CDT) Narrative User, [id number] - 01/09/2024 2:20 PM CDT See ENT Clinic note from same date for procedure result. Alex Lacy MD RAD ENT ENDOSCOPY from Last 3 Months Advance Directives For more information, please contact: [phone] * Full Code (Latest Code Status on File) Date Activated Date Inactivated Comments 12/09/2023 6:44 PM 12/12/2023 7:42 PM Question Answer Comments Does the Patient have prefer ences regarding life sustaining measures (these options only apply when the patient has a pulse): No Discussed Code Status With Whom? Not discussed Care Teams Neuro Psych Sales Specialist Relationship Specialty Start Date End Date Pcp, [place] [address] PCP - General 03/31/08
--- OUTSIDE RECORDS SUMMARY | 2024-03-17 09:29 | XMS_ITS | Encounter Summary ---
Author Organization [facility] Address [address] [place] [address] Phone Care Team Providers Care Bag Machine Set Up Operator Name Role Phone Pcp, No Primary [...] as of this encounter Plan of Treatment Not on file documented as of this encounter Visit Diagnoses Not on filedocumented in this encounter Care Teams Bag Machine Set Up Operator Relationship Specialty Start Date End Date Pcp, [place] [address] PCP - General 03/31/08 documented as of this encounter
--- OUTSIDE RECORDS SUMMARY | 2024-03-17 09:29 | XMS_ITS | Clinical Summary ---
Author Organization [employer] Address [address] [place] [address]. [place] [address] Phone Care Team Providers Care Chemist Water Purification Name Role Phone Pcp, No Primary Care Provider Unavailabl e Source Comments [employer] is fully rolled out on [employer]. Last update 11/20/08.[employer] Allergies No known active allergies Medications * [...] & Specialty Center Diabetes & Endocrinology Clinic [address] [place] [address] Amy Santoyo MD Jesness, Linda R, RN, [facility] Type 2 diabetes mellitus with diabetic neuropathy, with long-term current use of insulin ([facility]) (Primary Dx) Discharge Disposition: Discharged to home or self care 01/24/2024 Travel 01/09/2024 10:13 AM CDT - 01/09/2024 11:59 PM CDT Hospital Encounter [facility] ENT Imaging [address] [place] [address] Alex Lacy MD Discharge Disposition: Discharged to home or self care 01/09/2024 10:00 AM CDT Office Visit [facility] [address] [place] [address] Alex Lacy MD Benign neoplasm of aryepiglottic fold (Primary Dx); Vallecular cyst Discharge Disposition: Discharged to home or self care 01/09/2024 Travel from Last 3 Months Social History [...] Mass Index - - Plan of Treatment Health Maintenance Due Date [...] DIGITAL (01/09/2024 2:20 PM CDT) Narrative User, [email or web address] - 01/09/2024 2:20 PM CDT See ENT Clinic note from same date for procedure result. Alex Lacy MD RAD ENT ENDOSCOPY from Last 3 Months Advance Directives For more information, please contact: [phone] * Full Code (Latest Code Status on File) Date Activated Date Inactivated Comments 12/09/2023 6:44 PM 12/12/2023 7:42 PM Question Answer Comments Does the Patient have prefer ences regarding life sustaining measures (these options only apply when the patient has a pulse): No Discussed Code Status With Whom? Not discussed Care Teams Chemist Water Purification Relationship Specialty Start Date End Date Pcp, [place] [address] PCP - General 03/31/08
--- OUTSIDE RECORDS SUMMARY | 2024-03-17 09:29 | XMS_ITS | Encounter Summary ---
Author Organization [facility] Address [address] [place] [address] Phone Care Team Providers Care Mail Distribution Scheme Examiner Name Role Phone Pcp, No Primary Care [...] on filedocumented in this encounter Care Teams Mail Distribution Scheme Examiner Relationship Specialty Start Date End Date Pcp, [place] [address] PCP - General 03/31/08 documented as of this encounter
--- OUTSIDE RECORDS SUMMARY | 2024-03-17 09:29 | XMS_ITS | Encounter Summary ---
Author Organization [facility] Address [address] [place] [address] Phone Care Team Providers Care Marketing Mgr Name Role Phone Pcp, No Primary Care [...] on filedocumented in this encounter Care Teams Marketing Mgr Relationship Specialty Start Date End Date Pcp, No [place] [address] PCP - General 03/31/08 documented as of this encounter
--- OUTSIDE RECORDS SUMMARY | 2024-03-17 09:29 | XMS_ITS | Encounter Summary ---
Author Organization [facility] Address [address] [place] [address] Phone Care Team Providers Care Butt Sawyer Name Role Phone Pcp, No Primary Care Provider Unavailabl e Reason for Visit * Reason Comments Diabetes Education Class * Service Request (Routine) - New Request Specialty Diagnoses / Procedures Referred By Denny t Referred To Contact Diabetes Ed DSMT Diagnoses Type 2 diabetes mellitus without complication, without long-term current use of insulin (CMS/HHS) Debbie Lacy, DEAN, PANEL MACHINE TENDER [address] [address] Referral ID Status Reason Start Date Expiration Date V isits Requested Visits Authorized [id number] New Request 12/10/2023 12/09/2024 10 10 Encounter Details Date Type Department Care Team (Late st Contact Info) Description 01/24/2024 9:10 AM CDT Nurse Only [facility] Diabetes [facility] Endocrinology Clinic [address] [address] Amy Santoyo MD [address] [place] [phone] Collette Serrano, RN, [facility] [address] [place] [address] Type 2 diabetes mellitus with diabetic neuropathy, [...] this encounter Patient Instructions * Patient Instructions* Collette Serrano RN, JOANNA - 01/24/2024 9:10 [...] diab ed closer to home. 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 Patient has been referred for management diabetes training. See ict educator flowsheet for blood glucose values. Lab [...] session: 904 End time of session: 953 [id number] individual education time was 49 minutes. See ict educator flowsheet for behavioral goals and outcomes. [...] Primary documented in this encounter Care Teams Butt Sawyer Relationship Specialty Start Date End Date Pcp, No [place] [address] PCP - General 03/31/08 documented as of this encounter
--- OUTSIDE RECORDS SUMMARY | 2024-03-17 09:29 | XMS_ITS | Encounter Summary ---
Author Organization [facility] Address [address] [place] [address] Phone Care Team Providers Care Channel Development Director Name Role Phone Pcp, No Primary Care Provider Unavailabl e Encounter Details Date Type Department Care Team (Latest Contact Info) Description 01/09/2024 10:13 AM CDT - 01/09/2024 11:59 PM CDT Hospital Encounter [facility] ENT Imaging [address] [address] Alex Lacy MD [address] [place], [place] [phone] Discharge Disposition: Discharged to home or self [...] on file documented as of this encounter Procedures Procedure Name Priority Date/Time Associated Diagnosis Comments ENT LARYNGOSCOPY FLEX FIBER DIAG DIGITAL Routine 01/09/2024 2:20 PM CDT Benign neoplasm of aryepiglottic fold documented in this encounter Results * ENT LARYNGOSCOPY FLEX FIBER DIAG DIGITAL (01/09/2024 2:20 PM CDT) Narrative User, [id number] - 01/09/2024 2:20 PM CDT See ENT Clinic note from same date for procedure result. Alex Lacy MD RAD ENT ENDOSCOPY documented in this encounter Visit Diagnoses Diagnosis Benign neoplasm of aryepiglottic fold documented in this encounter Care Teams Channel Development Director Relationship Specialty Start Date End Date Pcp, No [place] [place] [address] PCP - General 03/31/08 documented as of this encounter
--- OUTSIDE RECORDS SUMMARY | 2024-03-17 09:30 | XMS_ITS | Encounter Summary ---
Author Organization [facility] Address [address] [place] [address] Phone Care Team Providers Care Concrete Precast Moulder Name Role Phone Pcp, No Primary Care [...] on filedocumented in this encounter Care Teams Concrete Precast Moulder Relationship Specialty Start Date End Date Pcp, No [place] [address] PCP - General 03/31/08 documented as of this encounter
--- OUTSIDE RECORDS SUMMARY | 2024-03-17 09:30 | XMS_ITS | Encounter Summary ---
Author Organization [facility] Address [address] [place] [address] Phone Care Team Providers Care Forest Fire Specialist Supervisor Name Role Phone Pcp, No Primary Care [...] on filedocumented in this encounter Care Teams Forest Fire Specialist Supervisor Relationship Specialty Start Date End Date Pcp, No [facility] [place] [address] PCP - General 03/31/08 documented as of this encounter
--- OUTSIDE RECORDS SUMMARY | 2024-03-17 09:30 | XMS_ITS | Encounter Summary ---
Author Organization [facility] Address [address] [place] [address] Phone Care Team Providers Care Human Service Specialist Name Role Phone Pcp, No Primary [...] on filedocumented in this encounter Care Teams Human Service Specialist Relationship Specialty Start Date End Date Pcp, No [place] [address] PCP - General 03/31/08 documented as of this encounter
--- OUTSIDE RECORDS SUMMARY | 2024-03-17 09:30 | XMS_ITS | Encounter Summary ---
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 1.25 mg/dL [facility] Calcium 8.5(L) 8.6 - 10.0 mg/dL [facility] Sodium 134(L) 135 - 148 mmol/L [facility] Potassium 4.7 3.5 - 5.3 mmol/L [facility] Chloride 101 92 - 108 mmol/L [facility] eGFR (2020 CKD-EPI) 106 >=60 ml/min/1.7 3m2 [facility] Comment: The estimated glomerular filtration rate (eGFR) was calculated using the CKD-EPI 2020 creatinine equation, which does not include race as a factor. This equation is validated in individuals 18 years of age and older, and eGFR is normalized to a body surface area of 1.73m^2. AnGap 11 8 - 16 mmol/L [facility] Blood 12/10/2023 5:11 AM CDT 12/10/2023 5:51 AM CDT Blaine Vasquez MD LABORATORY Performing Organization Address City/[facility]/ZIP Co de Phone Number [facility] [address] [address] * (ABNORMAL) CBC WITH PLATELET (12/10/2023 5:11 AM CDT) WBC 11.35(H) 4.00 - 10.00 k/cmm [facility] RBC 5.34 4.60 - 6.00 m/cmm [facility] Hgb 15.5 13.1 - 17.5 g/dL [facility] Hematocrit 46.0 40.0 - 51.0 % [facility] MCV 86.1 80.0 - 100.0 fL [facility] MCH 29.0 25.0 - 32.0 pg [facility] MCHC 33.7 31.0 - 36.0 g/dL [facility] RDW 12.8 11.5 - 14.5 % [facility] Plt 177 150 - 400 k/cmm [facility] MPV 12.0 6.5 - 12.5 fL [facility] Blood 12/10/2023 5:11 AM CDT 12/10/2023 5:51 AM CDT Blaine Vasquez MD LABORATORY [facility] [address] [address] * (ABNORMAL) GLYCOSYLATED HGB - A1C (12/10/2023 5:06 AM CDT) Hemoglobin A1C 11.1(H) 4.0 - 5.6 % [facility] Comment: Increased risk for [...] Estimated Average Glucose 272(H) 68 - 114 [facility] Comment: The estimated Average Glucose (eAG) was calculated using an equation derived from a study of 507 adults with type 1, type 2, or no diabetes. Minority populations were underrepresented and children were not included. The eAG is not equivalent to a fasting glucose concentration. Blood 12/10/2023 5:06 AM CDT 12/10/2023 7:31 AM CDT Blaine Vasquez MD LABORATORY [facility] [address] [address] * CT SPINE THORACIC NO IV CON [...] MD ?? Consent: ??Consent obtained: ??Emergent situation [facility] protocol: ??Patient identity confirmed: ??Verbally with patient [...] 6:29 PM CDT Indication: ??Patient transferred from [facility] due to Trauma. ??No initial report accompanied the patient and/or Dr. ??JOSÉ ANSARI requested an interpretation by me. Technique: ??CT scan of the cervical spine done on 12/09/2023 without IV contrast. ??3 mm axial, sagittal and coronal reconstructions reviewed in soft tissue and bone windows, per the local institution's scanning protocols, which may differ from the [facility] protocols. Findings: ?? The [...] folds measuring approximately 1.9 x 1.2 cm (/66). Please refer to separately dictated CT chest abdomen pelvis from same day for further discussion of intrathoracic findings. Procedure Note June Silvestre MD - 12/09/2023 Indication: Patient transferred from [facility] due toTrauma. No initial report accompanied the patient and/or Dr. REESE requested an interpretation by me. Technique: CT scan of the cervical spine done on 12/09/2023 without IVcontrast. 3 mm axial, sagittal and coronal reconstructions reviewed insoft tissue and bone windows, per the local institution's scanningprotocols, which may differ from the [facility] protocols. Findings: The lateral [...] 7:48 PM CDT Indication: ??Patient transferred from [facility] due to Trauma. ??No initial report accompanied the patient and/or Dr. ??JOSÉ ANSARI requested an interpretation by me. Technique: ??CT scan of the head done on 12/09/2023 without IV contrast. ??3 mm axial and coronal reconstructions reviewed in soft tissue and bone windows, per the local institution's scanning protocols, which may differ from the [facility] trauma protocols. Findings: ?? Coker-white [...] MD - 12/09/2023 Indication: Patient transferred from [facility] dueto Trauma. No initial report accompanied the patient and/or Dr. REESE requested an interpretation by me. Technique: CT scan of the head done on 12/09/2023 without IV contrast. 3mm axial and coronal reconstructions reviewed in soft tissue and bonewindows, per the local institution's scanning protocols, which may differfrom the [facility] protocols. Findings: Coker-white differentiation [...] Radiologist: Olaf Greene Reading Resident: Domi Pena 12/09/2023 6:30 PM CDT Indication: ??Patient transferred from [facility] due to Trauma. ??No initial report accompanied the patient and/or Dr. ??JOSÉ ANSARI requested an interpretation by me. Technique: ??CT scan of the chest/abdomen/pelvis done on 12/09/2023 with IV contrast. ??3 mm axial, sagittal and coronal reconstructions reviewed in soft tissue and bone windows, per the local institution's scanning protocols, which may differ from the [facility] protocols. Findings: ?? Chest: [...] MD - 12/09/2023 Indication: Patient transferred from [facility] due toTrauma. No initial report accompanied the patient and/or Dr. REESE requested an interpretation by me. Technique: CT scan of the chest/abdomen/pelvis done on 12/09/2023 with IVcontrast. 3 mm axial, sagittal and coronal reconstructions reviewed insoft tissue and bone windows, per the local institution's scanningprotocols, which may differ from the [facility] protocols. Findings: Chest: Lungs: [...] (12/09/2023 5:08 PM CDT) SST TUBE Stored [facility] Comment:SST tubes (Serum Sep arator) are stored in the lab for 3 days from the collection date. Blood 12/09/2023 5:08 PM CDT 12/09/2023 5:19 PM CDT José Ansari MD LABORATORY Performing Organization Address City/[facility]/ZIP Co de Phone Number [facility] [address] [address] * PRECAUTIONARY TUBE (12/09/2023 5:08 PM CDT) Prec Tube Precautionary Blood Bank Specimen Received. [facility] Blood 12/09/2023 5:08 PM CDT 12/09/2023 6:03 PM CDT José Ansari MD LAB TRANSFUSION SERV ICES [facility] [address] [address] * HS TROPONIN (12/09/2023 5:07 PM CDT) [facility] HS Troponin I <3 <=35 ng/L [facility] Blood 12/09/2023 5:07 PM CDT 12/09/2023 6:00 PM CDT Narrative [facility] - 12/09/2023 6:41 PM CDT First Occurrence of the Troponin order is to be drawn Stat by Nursing staff on the unit. José Ansari MD LABORATORY [facility] [address] [address] * ETHANOL (ETOH) LEVEL, BLOOD (12/09/2023 5:07 PM CDT) [facility] Ethanol Negative Negative g/dL [facility] Blood 12/09/2023 5:07 PM CDT 12/09/2023 6:00 PM CDT José Ansari MD LABORATORY Performing Organization Address City/[facility]/ZIP Co de Phone Number [facility] [address] [address] * PTT (APTT) (12/09/2023 5:07 PM CDT) [facility] APTT 29.5 25.0 - 37.0 sec [facility] Blood 12/09/2023 5:07 PM CDT 12/09/2023 6:00 PM CDT José Ansari MD LABORATORY Performing Organization Address City/[facility]/ZIP Co de Phone Number [facility] [address] [address] * ED INR (12/09/2023 5:07 PM CDT) [facility] ED INR 1.1 0.8 - 1.1 [facility] Comment: Warfarin Therapeutic Range: Standard Intensity: 2.0 - 3.0 High Intensity: 2.5 - 3.5 This is a rapid INR screening test which uses whole blood; results may infrequently differ from plasma INR results. If medication adjustments/dosing are required a PT/INR test ([id number]) should be ordered and performed in the main laboratory. Blood 12/09/2023 5:07 PM CDT 12/09/2023 5:18 PM CDT José Ansari MD LABORATORY Performing Organization Address [facility] Co de Phone Number [facility] [address] [address] * LACTATE (LACTIC ACID) (12/09/2023 5:07 PM CDT) Pathologist [facility] Lactate 1.8 0.7 - 2.1 mmol/L [facility] Blood 12/09/2023 5:07 PM CDT 12/09/2023 5:27 PM CDT Narrative [facility] - 12/09/2023 5:27 PM CDT Send specimen on ice! José Ansari MD LABORATORY Performing Organization Address [facility] Co de Phone Number [facility] [address] [address] * FIBRINOGEN (12/09/2023 5:07 PM CDT) Pathologist [facility] Fibrinogen 327 200 - 400 mg/dL [facility] Blood 12/09/2023 5:07 PM CDT 12/09/2023 6:00 PM CDT José Ansari MD LABORATORY Performing Organization Address [facility] Co de Phone Number [facility] [address] [address] * PANEL HEPATIC FUNCTION (12/09/2023 5:07 PM CDT) Total Protein 7.2 6.4 - 8.3 g/dL [facility] Albumin 4.1 3.8 - 5.1 g/dL [facility] Bili Total 0.3 <=1.2 mg/dL [facility] Bili Direct na <=0.3 mg/dL [facility] Comment:BILID = <0.2. Accura cy of result suspect due to hemolysis. Alk Phos 93 40 - 129 IU/L [facility] Comment:No reference range e stablished for patients <18 years old. ALT (SGPT) 37 <=41 IU/L [facility] AST(SGOT) na 5 - 40 IU/L [facility] Comment:AST = 33. Accuracy o f result suspect due to hemolysis. Blood 12/09/2023 5:07 PM CDT 12/09/2023 6:00 PM CDT José Ansari MD LABORATORY Performing Organization Address City/[facility]/ZIP Co de Phone Number [facility] [place] [phone] * ED HEMOGLOBIN TOTAL (ED ONLY) (12/09/2023 5:07 PM CDT) Hgb 17.2 13.1 - 17.5 g/dL [facility] Blood 12/09/2023 5:07 PM CDT 12/09/2023 5:27 PM CDT José Ansari MD LABORATORY Performing Organization Address [facility] Co de Phone Number [facility] [address] [address] * (ABNORMAL) ED CHEMISTRY LABS(NA,K,CL,CO2,GLU,CREAT,CA-IONIZED,ANION GAP) (12/09/2023 5:07 PM CDT) Sodium 137 135 - 148 mmol/L [facility] Chloride 108 92 - 108 mmol/L [facility] AnGap 7(L) 8 - 16 mmol/L [facility] Glucose 371(H) 70 - 100 mg/dL [facility] ICA, Actual 4.65 4.40 - 5.20 mg/dL [facility] ICA, pH Corrected 4.44 4.40 - 5.20 mg/dL [facility] Creatinine 0.93 0.70 - 1.25 mg/dL [facility] BICARB 22 22 - 26 mEq/L [facility] eGFR (2020 CKD-EPI) 99 >=60 ml/min/1.7 3m2 [facility] Comment: The estimated glomerular filtration rate (eGFR) was calculated using the CKD-EPI 2020 creatinine equation, which does not include race as a factor. This equation is validated in individuals 18 years of age and older, and eGFR is normalized to a body surface area of 1.73m^2. Potassium 5.1 3.5 - 5.3 mmol/L [facility] Blood 12/09/2023 5:07 PM CDT 12/09/2023 5:27 PM CDT José Ansari MD LABORATORY [facility] [address] [place] [address] * (ABNORMAL) CBC WITH PLTS/AUTO DIFF (12/09/2023 5:07 PM CDT) WBC 15.81(H) 4.00 - 10.00 k/cmm [facility] RBC 5.77 4.60 - 6.00 m/cmm [facility] Hgb 16.8 13.1 - 17.5 g/dL [facility] Hematocrit 50.1 40.0 - 51.0 % [facility] MCV 86.8 80.0 - 100.0 fL [facility] MCH 29.1 25.0 - 32.0 pg [facility] MCHC 33.5 31.0 - 36.0 g/dL [facility] RDW 12.4 11.5 - 14.5 % [facility] Plt 225 150 - 400 k/cmm [facility] MPV 11.8 6.5 - 12.5 fL [facility] Automated Abs Neutrophil 13.41(H) 1.70 - 6.50 k/cmm [facility] Comment:Preliminary ANC, Fin al Result to Follow Abs Immature Granulocyte 0.06 0.00 - 0.09 k/cmm [facility] Comment:The Immature Granulo cyte Absolute count contains metamyelocytes and myelocytes. Abs Neutrophil 13.41(H) 1.70 - 6.50 k/cmm [facility] Abs Lymphocyte 1.36 0.80 - 4.00 k/cmm [facility] Abs Monocyte 0.93 0.20 - 1.00 k/cmm [facility] Abs Eosinophil 0.02 0.00 - 0.60 k/cmm [facility] Abs Basophil 0.03 0.00 - 0.20 k/cmm [facility] Blood 12/09/2023 5:07 PM CDT 12/09/2023 6:00 PM CDT José Ansari MD LABORATORY Performing Organization Address [facility] Co de Phone Number [facility] [address] [address] * (ABNORMAL) BLOOD GASES (12/09/2023 5:07 PM CDT) PH Timo 7.31(L) 7.32 - 7.42 [facility] PCO2 Timo 45 41 - 51 mmHG [facility] PO2 Timo 68(H) 25 - 40 mmHG [facility] Bicarb Timo 22(L) 24 - 28 mEq/L [facility] O2 Sat Timo 94 % [facility] Base Exc Timo -3.9 -10.0 - 2.0 mmol/L [facility] Blood Venous 12/09/2023 5:07 PM CDT 12/09/2023 5:27 PM CDT José Ansari MD LABORATORY Performing Organization Address [facility] Co de Phone Number [address] [address] * ED US CRITICAL CARE (12/09/2023 5:05 [...] complication, without long-term current use of insulin ([facility])- Primary Closed fracture of multiple ribs of [...] Subcutaneous, Q12H, First dose on Sun12/10/23 at 1999, Until Discontinued Given 12/12/2023 8:05 AM CDT 30 mg Abdominal Tissue Given 12/11/2023 9:01 PM CDT 30 mg Ab dominal Tissue Given 12/11/2023 7:49 AM CDT 30 mg Ab dominal Tissue enoxaparin (LOVENOX) 40 mg/0.4 mL injection 40 mg 40 mg, Subcutaneous, Q12H, First dose (after last modification) on Sun12/12/23 at 1999, Until Discontinued fentaNYL (SUBLIMAZE) 100 mcg/2mL injection [...] Sun12/09/23 at 2000, Until Discontinued Given 12/12/2023 2:25 PM CDT [...] Intravenous, Q1H PRN, Starting on Sun12/09/23 at 204, Until Sun12/11/23 at 1007, Severe Pain New [...] on Sun12/09/23 at 1849, Until Sun12/09/23 at 2042, Severe Pain (Use First) Given 12/09/2023 7:41 [...] Sun12/09/23 at 2000, Until Discontinued Given 12/12/2023 8:05 [...] Sun12/10/23 at 1739, Until Sun12/12/23 at 1942 documented [...] Neida Rangel RN)2059 (Given - Provider: Marquita Dudley, TANVI) 0805 (Given - Provider: Aracely Coates, TANVI)1424 (Given - Provider: Aracely Coates, TANVI) bacitracin 500 unit/g external ointment Topical, DAILY, [...] RN) 0805 (Given - Provider: Aracely Coates RN)142 (Given - Provider: Aracely Coates RN) cyclobenzaprine [...] Subcutaneous, Q12H, First dose on Sun12/10/23 at 1999, Until Discontinued 1950 (Given - Provider: Sydni Dillon, TANVI) 0749 (Given - Provider: Neida Rangel RN)210 (Given - Provider: Marquita Dudley RN) 0805 (Given - Provider: Aracely Coates RN) enoxaparin (LOVENOX) 40 mg/0.4 mL injection 40 mg 40 mg, Subcutaneous, Q12H, First dose (after last modification) on Sun12/12/23 at 1999, Until Discontinued GABApentin (NEURONTIN) capsule 300 mg [...] Bedolla RN)0800 (Dual Sign-Off - Provider: Neida Rangel RN)0801 (Rate Verify - Provider: Neida Rangel [...] Until Sun12/12/23 at 1942, Nausea/Vomiting (Use First) 1447 (Given - Provider: Malathi Scruggs, TANVI) 2140 (See Alternative - Provider: Marquita Dudley, TANVI) ondansetron (ZOFRAN) 4 mg/5 mL oral solution 4 mg(Linked Group 2) 4 mg, Oral, TID PRN, Starting on 12/09/23 at 2049, Until Sun12/12/23 at 1942, Nausea/Vomiting (Use First) 1447 (See Alternative - Provider: Malathi Scruggs RN) 2140 (Given - Provider: Marquita Dudley RN) oxyCODONE (ROXICODONE) tablet 5-10 mg 5-10 mg, Oral, Q4H PRN, Starting on 12/09/23 at 1844, Until Sun12/12/23 at 1942, Moderate Pain (Use First) 0803 (Given - Provider: Neida Rangel RN)1400 (Given - Provider: Neida Rangel RN)1950 (Given - Provider: Sydni Dillon RN) 0002 (Given - Provider: Sydni Dillon RN)0453 [...] Oral, TID PRN, Starting on 12/09/23 at 2048, Until Sun12/12/23 at 1942, Nausea/Vomiting (Use First) Or ondansetron (ZOFRAN) 4 mg/2 mL injection 4 mgJump to med 4 mg, IV Push, TID PRN, Starting on 12/09/23 at 2048, Until Sun12/12/23 at 1942, Nausea/Vomiting (Use First) documented in this encounter Care Teams Retail Helper Relationship Specialty Start Date End Date Pcp, No [facility] [place] [address] PCP - General 03/31/08 documented as of this encounter
--- OUTSIDE RECORDS SUMMARY | 2024-03-17 09:30 | XMS_ITS | Encounter Summary ---
Author Organization [facility] [place] Address [address] [place] [phone] Phone Care Team Providers Care Cell Operation Supervisor Name Role Phone Pcp, No Primary [...] on filedocumented in this encounter Care Teams Cell Operation Supervisor Relationship Specialty Start Date End Date Pcp, [place] [address] PCP - General 03/31/08 documented as of this encounter
--- OUTSIDE RECORDS SUMMARY | 2024-03-17 09:30 | XMS_ITS | Encounter Summary ---
Author Organization [facility] Address [address] [place] [phone] Phone Care Team Providers Care Wildlife Rehabilitator Name Role Phone Pcp, No Primary Care [...] on filedocumented in this encounter Care Teams Wildlife Rehabilitator Relationship Specialty Start Date End Date Pcp, No [place] [place] [address] PCP - General 03/31/08 documented as of this encounter
--- OUTSIDE RECORDS SUMMARY | 2024-03-17 09:30 | XMS_ITS | Encounter Summary ---
Author Organization [facility] [place]Note 2[place] Address [address] [place] [phone] Phone Care Team Providers Care Packing Floor Worker Name Role Phone Pcp, No Primary Care [...] on filedocumented in this encounter Care Teams Packing Floor Worker Relationship Specialty Start Date End Date Pcp, No [place] [place] [address] PCP - General 03/31/08 documented as of this encounter
--- OUTSIDE RECORDS SUMMARY | 2024-03-17 09:30 | XMS_ITS | Encounter Summary ---
Author Organization [facility] Address [address] [place] [phone] Phone Care Team Providers Care Route Sales Delivery Driver Name Role Phone Pcp, No Primary Care [...] on filedocumented in this encounter Care Teams Route Sales Delivery Driver Relationship Specialty Start Date End Date Pcp, No [place] [address] PCP - General 03/31/08 documented as of this encounter
--- NOTE | 2024-03-17 11:10 | W.ANESCHARGE ---
Anesthesia Charges Start Date/Time Anesthesia Start Date: 03/17/24 Anesthesia Start Time: 10:20 Stop Date/Time Anesthesia Stop Date: 03/17/24 Anesthesia Stop Time: 11:05
--- NOTE | 2024-03-17 11:24 | W.ANESCHARGE ---
Anesthesia Charges Start Date/Time Anesthesia Start Date: 03/17/24 Anesthesia Start Time: 10:20 Stop Date/Time Anesthesia Stop Date: 03/17/24 Anesthesia Stop Time: 11:05
== END 2024-03-17 09:26 | disposition home or self-care (01) ==
LOC: OP CLINIC 09:28
PROVIDERS: PCP Registered Nurse; Visit Provider Surgery
DX: Z12.11 Encounter for screening for malignant neoplasm of colon (principal); D12.3 Benign neoplasm of transverse colon; D12.4 Benign neoplasm of descending colon; D12.5 Benign neoplasm of sigmoid colon; D12.8 Benign neoplasm of rectum
CPT/HCPCS: 00811; 45385; 88305; J2704

== ENCOUNTER 2024-06-12 07:35 | Outpatient (CLI) | payer OTHER, SELFPAY | END 2024-06-12 07:36 | disposition home or self-care (01) | LOC: NFLDREF 06-13 06:13 | PROVIDERS: PCP Registered Nurse; Referring Provider Registered Nurse; Visit Provider Registered Nurse | DX: E11.9 Type 2 diabetes mellitus without complications (principal) | CPT/HCPCS: 80048 ==

== ENCOUNTER 2025-01-12 15:32 | Outpatient (CLI) | payer BC, SELFPAY | END 2025-01-12 15:33 | disposition home or self-care (01) | PROVIDERS: PCP Registered Nurse; Visit Provider Family Medicine | DX: E11.65 Type 2 diabetes mellitus with hyperglycemia (principal); Z79.85 Long-term (current) use of injectable non-insulin antidiabetic drugs | CPT/HCPCS: 80053; 80061; 82043; 82570 ==

== ENCOUNTER 2025-04-13 15:32 | Outpatient (CLI) | payer BC, SELFPAY | END 2025-04-13 15:33 | disposition home or self-care (01) | LOC: NFLDREF 04-15 19:11 | PROVIDERS: PCP Family Medicine; Referring Provider Family Medicine; Visit Provider Family Medicine | DX: E11.9 Type 2 diabetes mellitus without complications (principal) | CPT/HCPCS: G0103 ==